=== PATIENT | male | born 1955 | race African-American/Black ===

== ENCOUNTER 2017-11-12 21:14 | Emergency (ER) | payer MEDICAID ==
[~2017-11-12] VITALS: Ht 167.6 cm; Wt 82.0 kg
[~2017-11-12 21:14] MED LIST: ASPI-1159 PO; ATOR40TA70 PO; BENZ100C86 PO; DIPH50CA38 PO; FAMO20TA8 PO; GABA-290 PO; LOSA50TA20 PO; METF10002 PO; NAPR-681 PO; SERT-112 PO
[2017-11-13] MEDS ORDERED: SODIUM CHLORIDE 0.9% 1,000 ML IV ONE (02:37)
[2017-11-13] MEDS ORDERED: MORPHINE SULFATE 4 MG/ML CPJ (NOT FOR IM USE) IV ONE (02:45)
[2017-11-13] MEDS ORDERED: ONDANSETRON HCL 4MG/2ML VIAL IV ONE (02:45)
[2017-11-13 03:17] LABS: BASOPHILS % 0.9 % (0.0-2.0); EOSINOPHILS % 1.3 % (0.0-5.0); HEMATOCRIT. 37.1 % (42.0-52.0); HEMOGLOBIN. 11.9 g/dL (14.0-18.0); LYMPHOCYTES % 26.1 % (20.0-50.0); MEAN CORPUSCULAR HEMOGLOBIN 25.7 pg (28.0-32.0); MEAN PLATELET VOLUME 8.4 fl (7.4-10.4); MONOCYTES % 10.7 % (2.0-8.0); PLATELET 275 x1000/uL (130-400); RED BLOOD CELL COUNT 4.64 mill/uL (4.7-6.1); RED CELL DISTRIBUTION WIDTH 13.9 % (11.6-14.6)
[2017-11-13 03:19] LABS: CLARITY URINE CLEAR (CLEAR); COLOR URINE YELLOW (YELLOW); KETONES URINE NEGATIVE (NEGATIVE); LEUKOCYTE ESTERASE URINE NEGATIVE (NEGATIVE); NITRITE URINE NEGATIVE (NEGATIVE); OCCULT BLOOD URINE NEGATIVE (NEGATIVE); PROTEIN URINE NEGATIVE (NEGATIVE); UROBILINOGEN URINE 0.2 E.U./dL (0.2-1.0)
[2017-11-13 03:21] LABS: INR 1.1; PROTHROMBIN TIME 11.1 sec (9.4-11.6)
[2017-11-13 03:41] LABS: CARBON DIOXIDE 31 mEq/L (21-32); CHLORIDE 102 mEq/L (98-107)
[2017-11-13] MEDS ORDERED: GABAPENTIN 300MG CAPSULE PO NR (08:00)
[2017-11-13] MEDS ORDERED: LOSARTAN POTASSIUM 50 MG TABLET PO NR (08:00)
[2017-11-13] MEDS ORDERED: METFORMIN HCL 500MG TABLET PO NR (08:00)
[2017-11-13 11:00] VITALS: BP 142/79
[2017-11-13] MEDS ORDERED: GABAPENTIN 300MG CAPSULE PO SCH ×2 (14:00)
[2017-11-13] MEDS ORDERED: METFORMIN HCL 500MG TABLET PO SCH (17:00)
[2017-11-14] MEDS ORDERED: LOSARTAN POTASSIUM 50 MG TABLET PO SCH (09:00)
== END 2017-11-13 12:03 | disposition home or self-care (01) ==
LOC: ER 21:16
DX: M79.671 Pain in right foot (principal); E86.0 Dehydration; E11.65 Type 2 diabetes mellitus with hyperglycemia; G62.9 Polyneuropathy, unspecified; F17.210 Nicotine dependence, cigarettes, uncomplicated; J45.909 Unspecified asthma, uncomplicated; I10 Essential (primary) hypertension; G40.909 Epilepsy, unspecified, not intractable, without status epilepticus; F10.10 Alcohol abuse, uncomplicated; Y90.9 Presence of alcohol in blood, level not specified; Z79.82 Long term (current) use of aspirin; Z71.6 Tobacco abuse counseling; Z91.19 Patient's noncompliance with other medical treatment and regimen
CPT/HCPCS: 36415; 73610; 73630; 80053; 81003; 82962; 83605; 85025; 85610; 93005; 96361; 96374; 96375; 99285; J2270; J2405; J7030; Z7610

== ENCOUNTER 2017-11-15 11:19 | Emergency (ER) | payer MEDICAID ==
[~2017-11-15] VITALS: Ht 172.7 cm; Wt 100.0 kg
[2017-11-15] MEDS ORDERED: KETOROLAC 60MG/2ML VIAL IM ONE (16:45)
[2017-11-15] MEDS ORDERED: ACETAMINOPHEN 325MG TABLET PO ONE (19:00)
[2017-11-15 20:00] VITALS: BP 126/82
== END 2017-11-15 20:30 | disposition home or self-care (01) ==
LOC: ER 11:27
DX: M79.671 Pain in right foot (principal); M79.672 Pain in left foot; I10 Essential (primary) hypertension; E11.9 Type 2 diabetes mellitus without complications; J45.909 Unspecified asthma, uncomplicated; Z79.82 Long term (current) use of aspirin
CPT/HCPCS: 73630; 96372; 99284; J1885

== ENCOUNTER 2020-04-18 19:08 | Emergency (ER) | payer MEDICAID ==
[~2020-04-18] VITALS: Ht 167.6 cm; Wt 85.0 kg
[~2020-04-18 19:08] MED LIST changes: -ASPI-1159 PO; +ASPI-1497 PO; -LOSA50TA20 PO; +LOSA50TA41 PO; +METF-416 PO; -METF10002 PO
[2020-04-18] MEDS ORDERED: IBUPROFEN 800MG TABLET PO ONE (20:30)
[2020-04-18] MEDS ORDERED: ACETAMINOPHEN 500MG TABLET PO ONE (20:30)
[2020-04-18 22:19] VITALS: BP 151/83
== END 2020-04-18 22:21 | disposition home or self-care (01) ==
LOC: ER 19:08
DX: S39.012A Strain of muscle, fascia and tendon of lower back, initial encounter (principal); S46.819A Strain of other muscles, fascia and tendons at shoulder and upper arm level, unspecified arm, initial encounter; I10 Essential (primary) hypertension; F17.210 Nicotine dependence, cigarettes, uncomplicated; X58.XXXA Exposure to other specified factors, initial encounter; Y93.89 Activity, other specified; Y92.018 Other place in single-family (private) house as the place of occurrence of the external cause
CPT/HCPCS: 72040; 72100; 99284

== ENCOUNTER 2020-06-24 08:15 | Inpatient (IN) | payer MEDICAID ==
[~2020-06-24] VITALS: Ht 167.6 cm; Wt 81.6 kg
[2020-06-24] MEDS ORDERED: SODIUM CHLORIDE 0.9% 1,000 ML IV ONE (08:45)
[2020-06-24 09:22] LABS: BASOPHILS % 0.7 % (0.0-2.0); EOSINOPHILS % 0.5 % (0.0-5.0); HEMATOCRIT. 43.2 % (42.0-52.0); HEMOGLOBIN. 14.1 g/dL (14.0-18.0); MEAN CORPUSCULAR HEMOGLOBIN 26.5 pg (28.0-32.0); MEAN PLATELET VOLUME 9.2 fl (7.4-10.4); MONOCYTES % 7.1 % (2.0-8.0); NEUTROPHILS % 74.7 % (40.0-76.0); PLATELET 192 x1000/uL (130-400); RED BLOOD CELL COUNT 5.33 mill/uL (4.7-6.1)
[2020-06-24 09:25] LABS: CHLORIDE 110 mEq/L (98-107)
[2020-06-24 09:27] LABS: PROTHROMBIN TIME 10.9 sec (9.6-11.0)
[2020-06-24] MEDS ORDERED: BENZONATATE 100MG CAPSULE PO PRN (17:00)
[2020-06-24] MEDS ORDERED: CLONIDINE 0.1MG TABLET PO PRN (17:00)
[2020-06-24] MEDS ORDERED: DOCUSATE SODIUM 100MG CAPSULE PO PRN (17:00)
[2020-06-24] MEDS ORDERED: ACETAMINOPHEN 325MG TABLET PO PRN ×2 (17:00)
[2020-06-24] MEDS ORDERED: MORPHINE SULFATE 2 MG/ML CPJ (NOT FOR IM USE) IV PRN (17:00)
[2020-06-24] MEDS ORDERED: LORAZEPAM 0.5MG TABLET PO PRN (17:00)
[2020-06-24] MEDS ORDERED: ATORVASTATIN CALCIUM 40MG TABLET PO SCH (17:00)
[2020-06-24] MEDS ORDERED: IPRATROPIUM/ALBUTEROL 0.5-3(2.5)MG/3ML NEB HHN PRN (17:00)
[2020-06-24] MEDS ORDERED: HYDROCODONE/ACETAMINOPHEN 5/325MG TABLET PO PRN (17:00)
[2020-06-24] MEDS ORDERED: ONDANSETRON HCL 4MG/2ML INJ IV PRN (17:00)
[2020-06-24 20:00] VITALS: BP 149/78
[2020-06-24 20:11] VITALS: BP 149/78
[2020-06-24] MEDS ORDERED: SERTRALINE HCL 100MG TABLET PO SCH (21:00)
[2020-06-24] MEDS: OMEPRAZOLE 20MG CAPSULE EXTENDED RELEASE PO SCH (22:00)
[2020-06-24] MEDS ORDERED: DEXTROSE 50% WATER 50ML SYRINGE IV PRN (22:00)
[2020-06-24] MEDS: INSULIN LISPRO 100 UNITS/ML SUBCUT SCH (22:00)
[2020-06-24] MEDS: GABAPENTIN 300MG CAPSULE PO SCH (22:01)
[2020-06-24] MEDS: BLOOD SUGAR DIAGNOSTIC STRIP TEST SCH (22:05)
[2020-06-25] VITALS: BP 146/70
[2020-06-25 04:00] VITALS: BP 113/72
[2020-06-25] MEDS: GABAPENTIN 300MG CAPSULE PO SCH ×2 (06:14→14:56)
[2020-06-25 06:18] LABS: BASOPHILS % 0.7 % (0.0-2.0); EOSINOPHILS % 1.2 % (0.0-5.0); HEMATOCRIT. 40.4 % (42.0-52.0); HEMOGLOBIN. 13.2 g/dL (14.0-18.0); LYMPHOCYTES % 25.4 % (20.0-50.0); MEAN CORPUSCULAR HEMOGLOBIN 26.6 pg (28.0-32.0); MEAN PLATELET VOLUME 8.9 fl (7.4-10.4); MONOCYTES % 7.8 % (2.0-8.0); NEUTROPHILS % 64.9 % (40.0-76.0); PLATELET 198 x1000/uL (130-400); RED BLOOD CELL COUNT 4.98 mill/uL (4.7-6.1); RED CELL DISTRIBUTION WIDTH 13.7 % (11.6-14.6)
[2020-06-25] MEDS: OMEPRAZOLE 20MG CAPSULE EXTENDED RELEASE PO SCH (06:27)
[2020-06-25] MEDS: BLOOD SUGAR DIAGNOSTIC STRIP TEST SCH ×2 (06:27→12:47)
[2020-06-25 06:33] LABS: CHLORIDE 108 mEq/L (98-107)
[2020-06-25] MEDS ORDERED: BLOOD SUGAR DIAGNOSTIC STRIP TEST SCH (07:20)
[2020-06-25] MEDS: INSULIN LISPRO 100 UNITS/ML SUBCUT SCH ×2 (07:50→12:48)
[2020-06-25] MEDS ORDERED: INSULIN LISPRO 100 UNITS/ML SUBCUT SCH (07:50)
[2020-06-25 08:00] VITALS: BP 163/88
[2020-06-25] MEDS ORDERED: LOSARTAN POTASSIUM 50 MG TABLET PO SCH (09:00)
[2020-06-25 12:00] VITALS: BP 138/76
[2020-06-25 12:11] VITALS: BP 138/76
== END 2020-06-25 16:10 | disposition home or self-care (01) | DRG 253 ==
LOC: ER 08:15 → 6EST 10:55 → EDBEDREQSVC 10:59 → EDBEDREQ 10:59 → ENRESERV 18:39
PROVIDERS: ADMIT Internal Medicine; ATTEND Internal Medicine
DX: K92.2 Gastrointestinal hemorrhage, unspecified (principal); E11.9 Type 2 diabetes mellitus without complications; I10 Essential (primary) hypertension; F17.200 Nicotine dependence, unspecified, uncomplicated; J44.9 Chronic obstructive pulmonary disease, unspecified; G40.909 Epilepsy, unspecified, not intractable, without status epilepticus; T54.91XA Toxic effect of unspecified corrosive substance, accidental (unintentional), initial encounter; Y92.89 Other specified places as the place of occurrence of the external cause; Z79.84 Long term (current) use of oral hypoglycemic drugs; Z86.73 Personal history of transient ischemic attack (TIA), and cerebral infarction without residual deficits; Z79.82 Long term (current) use of aspirin; Z79.899 Other long term (current) drug therapy; E87.8 Other disorders of electrolyte and fluid balance, not elsewhere classified
CPT/HCPCS: 36415; 71045; 80048; 80053; 82270; 82962; 83036; 83605; 85025; 86850; 86900; 93005; 99285; J7030

== ENCOUNTER 2020-07-04 19:31 | Inpatient (IN) | payer MEDICAID ==
[~2020-07-04] VITALS: Ht 160 cm; Wt 87.5 kg
[2020-07-04] MEDS ORDERED: ASPIRIN 81MG TABLET PO ONE (20:00)
[2020-07-04] MEDS ORDERED: NITROGLYCERIN 0.4MG TABLET SL SL PRN (20:00)
[2020-07-04 21:08] LABS: BASOPHILS % 0.6 % (0.0-2.0); EOSINOPHILS % 0.9 % (0.0-5.0); HEMOGLOBIN. 12.2 g/dL (14.0-18.0); LYMPHOCYTES % 25.6 % (20.0-50.0); MEAN CORPUSCULAR HEMOGLOBIN 26.2 pg (28.0-32.0); MEAN CORPUSCULAR VOLUME 81.4 fL (80.0-94.0); MONOCYTES % 7.5 % (2.0-8.0); NEUTROPHILS % 65.4 % (40.0-76.0); PLATELET 186 x1000/uL (130-400); RED BLOOD CELL COUNT 4.67 mill/uL (4.7-6.1); RED CELL DISTRIBUTION WIDTH 14.1 % (11.6-14.6)
[2020-07-04 21:15] LABS: CHLORIDE 112 mEq/L (98-107)
[2020-07-04 21:19] LABS: D-DIMER 1.12 mg/L FEU (<0.50); PARTIAL THROMBOPLASTIN TIME 27.8 sec (23.4-31.0); PROTHROMBIN TIME 10.5 sec (9.6-11.0)
[2020-07-04] MEDS ORDERED: VANCOMYCIN 1 G PREMIX 200 ML IV ONE (23:00)
[2020-07-04] MEDS ORDERED: PIPERACILLIN/TAZ 3.375G PREMIX 50 ML IV ONE (23:00)
[2020-07-04] MEDS ORDERED: IOHEXOL-350 100 ML BOTTLE ONE (23:26)
[2020-07-05] VITALS (9 sets, daily range): BP systolic 123–153; BP diastolic 61–79
[2020-07-05] MEDS ORDERED: ACETAMINOPHEN 325MG TABLET PO PRN (03:15)
[2020-07-05] MEDS ORDERED: CEFTRIAXONE 1 G PREMIX 50 ML IV SCH (03:15)
[2020-07-05] MEDS ORDERED: DEXTROSE 50% WATER 50ML SYRINGE IV PRN (03:15)
[2020-07-05] MEDS ORDERED: MORPHINE SULFATE 2 MG/ML CPJ (NOT FOR IM USE) IV PRN (03:15)
[2020-07-05] MEDS ORDERED: IPRATROPIUM/ALBUTEROL 0.5-3(2.5)MG/3ML NEB HHN PRN (03:30)
[2020-07-05] MEDS: AZITHROMYCIN 500 MG in DEXT 5% WATER 250 ML IV SCH (05:42)
[2020-07-05] MEDS: BLOOD SUGAR DIAGNOSTIC STRIP TEST SCH ×4 (05:45→20:42)
[2020-07-05] MEDS: INSULIN LISPRO 100 UNITS/ML SUBCUT SCH ×4 (08:10→20:42)
[2020-07-05] MEDS ORDERED: TRAMADOL 50MG TABLET PO PRN (08:45)
[2020-07-05] MEDS: CEFTRIAXONE 1,000 MG in DEXTROSE 5% WATER 50 ML IV SCH (08:50)
[2020-07-05] MEDS: METFORMIN HCL 500MG TABLET PO SCH (08:50)
[2020-07-05] MEDS ORDERED: DEXAMETHASONE 4MG TABLET PO SCH (09:00)
[2020-07-05] MEDS: ENOXAPARIN 40MG/0.4ML SYR SUBCUT SCH (09:08)
[2020-07-05 20:43] LABS: CLARITY URINE CLEAR (CLEAR); COLOR URINE YELLOW (YELLOW); KETONES URINE NEGATIVE (NEGATIVE); LEUKOCYTE ESTERASE URINE NEGATIVE (NEGATIVE); NITRITE URINE NEGATIVE (NEGATIVE); OCCULT BLOOD URINE NEGATIVE (NEGATIVE); PH URINE 5.5 (4.5-8.0); PROTEIN URINE NEGATIVE (NEGATIVE); SPECIFIC GRAVITY URINE 1.015 (1.005-1.030); UROBILINOGEN URINE 0.2 E.U./dL (0.2-1.0)
[2020-07-05] MEDS ORDERED: ATORVASTATIN CALCIUM 20MG TABLET PO SCH (21:00)
[2020-07-05 21:05] LABS: *AMPHETAMINES SCREEN URINE NEGATIVE (NEGATIVE)
[2020-07-05 21:06] LABS: *BARBITURATES SCREEN URINE NEGATIVE (NEGATIVE); *BENZODIAZEPINES SCREEN URINE NEGATIVE (NEGATIVE); *COCAINE SCREEN URINE NEGATIVE (NEGATIVE); METHADONE URINE SCREEN NEGATIVE (NEGATIVE); OPIATES URINE SCREEN NEGATIVE (NEGATIVE); PHENCYCLIDINE URINE SCREEN NEGATIVE (NEGATIVE)
[2020-07-05 21:07] LABS: CANNABINOID URINE SCREEN NEGATIVE (NEGATIVE)
[2020-07-06] VITALS: BP 136/60
[2020-07-06] MEDS ORDERED: CALCIUM CARBONATE 500MG TABLET CHEW PO PRN (00:45)
[2020-07-06 04:00] VITALS: BP 132/39
[2020-07-06] MEDS: BLOOD SUGAR DIAGNOSTIC STRIP TEST SCH ×2 (06:20→11:46)
[2020-07-06] MEDS: INSULIN LISPRO 100 UNITS/ML SUBCUT SCH ×2 (06:20→11:46)
[2020-07-06] MEDS: METFORMIN HCL 500MG TABLET PO SCH (08:05)
[2020-07-06 08:07] VITALS: BP 152/74
[2020-07-06 09:00] LABS: BASOPHILS % 0.5 % (0.0-2.0); EOSINOPHILS % 0.1 % (0.0-5.0); HEMATOCRIT. 38.9 % (42.0-52.0); HEMOGLOBIN. 12.6 g/dL (14.0-18.0); LYMPHOCYTES % 13.6 % (20.0-50.0); MEAN CORPUSCULAR HEMOGLOBIN 26.4 pg (28.0-32.0); MEAN CORPUSCULAR VOLUME 81.6 fL (80.0-94.0); MONOCYTES % 3.7 % (2.0-8.0); NEUTROPHILS % 82.1 % (40.0-76.0); PLATELET 179 x1000/uL (130-400); RED BLOOD CELL COUNT 4.77 mill/uL (4.7-6.1)
[2020-07-06] MEDS ORDERED: ASPIRIN 81MG TABLET PO SCH (09:00)
[2020-07-06] MEDS: ENOXAPARIN 40MG/0.4ML SYR SUBCUT SCH (09:02)
[2020-07-06 09:18] LABS: CHLORIDE 109 mEq/L (98-107)
[2020-07-06] MEDS: AZITHROMYCIN 500 MG in DEXT 5% WATER 250 ML IV SCH (10:16)
[2020-07-06] MEDS: CEFTRIAXONE 1,000 MG in DEXTROSE 5% WATER 50 ML IV SCH (10:16)
[2020-07-06] MEDS ORDERED: IPRATROPIUM/ALBUTEROL 0.5-3(2.5)MG/3ML NEB HHN PRN (10:30)
[2020-07-06 12:00] VITALS: BP 146/78
[2020-07-06] MEDS ORDERED: FLUT1DIS3 INH (14:27)
[2020-07-06] MEDS ORDERED: ALBU18HF2 IH (14:27)
[2020-07-06 14:45] VITALS: BP 146/78
== END 2020-07-06 15:10 | disposition home or self-care (01) | DRG 190 ==
LOC: ER 19:31 → 7WST 07-05 00:47 → EDBEDREQDT 07-05 00:53 → EDBEDREQ 07-05 00:53 → EDBEDREQTM 07-05 00:53 → ENRESERV 07-05 01:28 → 5WST 07-05 20:58
PROVIDERS: ADMIT Internal Medicine; ATTEND Internal Medicine
DX: I21.A1 Myocardial infarction type 2 (principal); J96.00 Acute respiratory failure, unspecified whether with hypoxia or hypercapnia; E11.9 Type 2 diabetes mellitus without complications; I10 Essential (primary) hypertension; M10.9 Gout, unspecified; K76.0 Fatty (change of) liver, not elsewhere classified; E87.2 Acidosis; E87.8 Other disorders of electrolyte and fluid balance, not elsewhere classified; D64.9 Anemia, unspecified; E78.5 Hyperlipidemia, unspecified; R00.1 Bradycardia, unspecified; F17.210 Nicotine dependence, cigarettes, uncomplicated; N17.0 Acute kidney failure with tubular necrosis; J18.9 Pneumonia, unspecified organism; I44.1 Atrioventricular block, second degree; G52.2 Disorders of vagus nerve; I25.10 Atherosclerotic heart disease of native coronary artery without angina pectoris; E66.01 Morbid (severe) obesity due to excess calories; J44.1 Chronic obstructive pulmonary disease with (acute) exacerbation; J44.0 Chronic obstructive pulmonary disease with (acute) lower respiratory infection; Z79.899 Other long term (current) drug therapy; Z79.82 Long term (current) use of aspirin; Z79.84 Long term (current) use of oral hypoglycemic drugs; Z68.34 Body mass index [BMI] 34.0-34.9, adult; Z86.19 Personal history of other infectious and parasitic diseases; Z20.828 Contact with and (suspected) exposure to other viral communicable diseases
CPT/HCPCS: 36415; 71045; 71275; 80048; 80053; 80305; 81003; 82962; 83036; 83605; 83880; 84484; 85025; 85379; 87426; 93005; 93306; 99291; J0456; J0696; J1650; J1815; J2543; J3370; J7060; J8540; Q9967

== ENCOUNTER 2020-07-13 09:37 | Emergency (ER) | payer MEDICAID ==
[~2020-07-13] VITALS: Ht 157.5 cm; Wt 82.0 kg
[~2020-07-13 09:37] MED LIST changes: +ALBU18HF2 IH; +FLUT1DIS3 INH
[2020-07-13 10:35] LABS: BASOPHILS % 0.7 % (0.0-2.0); EOSINOPHILS % 1.4 % (0.0-5.0); HEMATOCRIT. 44.2 % (42.0-52.0); HEMOGLOBIN. 14.2 g/dL (14.0-18.0); LYMPHOCYTES % 25.2 % (20.0-50.0); MEAN CORPUSCULAR HEMOGLOBIN 26.4 pg (28.0-32.0); MEAN CORPUSCULAR VOLUME 82.1 fL (80.0-94.0); MONOCYTES % 9.2 % (2.0-8.0); NEUTROPHILS % 63.5 % (40.0-76.0); PLATELET 176 x1000/uL (130-400); RED BLOOD CELL COUNT 5.38 mill/uL (4.7-6.1); RED CELL DISTRIBUTION WIDTH 14.6 % (11.6-14.6)
[2020-07-13 10:44] LABS: CHLORIDE 108 mEq/L (98-107)
[2020-07-13] MEDS ORDERED: ASPIRIN 325MG EC TABLET PO NR (11:30)
[2020-07-13] MEDS ORDERED: ONDANSETRON HCL 4MG/2ML INJ IV PRN (12:30)
[2020-07-13] MEDS ORDERED: DIPHENHYDRAMINE 50MG/ML VIAL IV PRN (12:30)
[2020-07-13] MEDS ORDERED: CLONIDINE 0.1MG TABLET PO PRN (12:30)
[2020-07-13] MEDS ORDERED: MORPHINE SULFATE 2 MG/ML CPJ (NOT FOR IM USE) IV PRN (12:30)
[2020-07-13] MEDS ORDERED: ACETAMINOPHEN 325MG TABLET PO PRN (12:30)
[2020-07-13] MEDS ORDERED: IPRATROPIUM/ALBUTEROL 0.5-3(2.5)MG/3ML NEB HHN PRN (12:30)
[2020-07-13 12:47] LABS: PHOSPHORUS 3.8 mg/dL (2.5-4.9)
[2020-07-13] MEDS ORDERED: ENOXAPARIN 40MG/0.4ML SYR SUBCUT SCH (13:00)
[2020-07-13 13:15] VITALS: BP 153/81
[2020-07-14] MEDS ORDERED: ASPIRIN 81MG EC TABLET PO SCH (09:00)
== END 2020-07-13 13:41 | disposition left against medical advice (07) ==
LOC: ER 09:37 → EDBEDREQ 12:25 → ER 13:41 → CANBEDREQ 18:58
DX: R07.89 Other chest pain (principal); I10 Essential (primary) hypertension; E11.9 Type 2 diabetes mellitus without complications; E78.00 Pure hypercholesterolemia, unspecified; F17.210 Nicotine dependence, cigarettes, uncomplicated
CPT/HCPCS: 36415; 71045; 80053; 83735; 83880; 84100; 84484; 85025; 93005; 93970; 99285

== ENCOUNTER 2020-08-01 17:30 | Emergency (ER) | payer MEDICAID ==
[~2020-08-01] VITALS: Ht 157.5 cm; Wt 82.0 kg
[2020-08-01] MEDS ORDERED: ONDANSETRON HCL 4MG/2ML INJ IV STA (17:44)
[2020-08-01] MEDS ORDERED: SODIUM CHLORIDE 0.9% 500 ML IV ONE (17:45)
[2020-08-01 17:55] LABS: CLARITY URINE CLEAR (CLEAR); COLOR URINE YELLOW (YELLOW); KETONES URINE TRACE (NEGATIVE); LEUKOCYTE ESTERASE URINE NEGATIVE (NEGATIVE); NITRITE URINE NEGATIVE (NEGATIVE); OCCULT BLOOD URINE NEGATIVE (NEGATIVE); PROTEIN URINE NEGATIVE (NEGATIVE)
[2020-08-01] MEDS ORDERED: MORPHINE SULFATE 4 MG/ML CPJ (NOT FOR IM USE) IV ONE (18:00)
[2020-08-01 18:03] LABS: BASOPHILS % 0.6 % (0.0-2.0); EOSINOPHILS % 1.4 % (0.0-5.0); HEMATOCRIT. 47.1 % (42.0-52.0); HEMOGLOBIN. 15.3 g/dL (14.0-18.0); LYMPHOCYTES % 19.7 % (20.0-50.0); MEAN CORPUSCULAR HEMOGLOBIN 26.3 pg (28.0-32.0); MEAN CORPUSCULAR VOLUME 80.7 fL (80.0-94.0); MEAN PLATELET VOLUME 9.3 fl (7.4-10.4); MONOCYTES % 8.8 % (2.0-8.0); NEUTROPHILS % 69.5 % (40.0-76.0); PLATELET 232 x1000/uL (130-400); RED BLOOD CELL COUNT 5.83 mill/uL (4.7-6.1); RED CELL DISTRIBUTION WIDTH 14.1 % (11.6-14.6)
[2020-08-01 18:10] LABS: CHLORIDE 104 mEq/L (98-107)
[2020-08-01 18:16] LABS: PROTHROMBIN TIME 10.4 sec (9.6-11.0)
[2020-08-01] MEDS ORDERED: FUROSEMIDE 20MG/2ML VIAL IVP ONE (19:30)
[2020-08-01] MEDS ORDERED: FUROSEMIDE 20MG TABLET PO ONE (19:30)
[2020-08-01 19:54] VITALS: BP 115/68
== END 2020-08-01 19:55 | disposition home or self-care (01) ==
LOC: ER 17:30
DX: R10.9 Unspecified abdominal pain (principal); K57.90 Diverticulosis of intestine, part unspecified, without perforation or abscess without bleeding; N28.9 Disorder of kidney and ureter, unspecified; E11.9 Type 2 diabetes mellitus without complications; I10 Essential (primary) hypertension; R56.9 Unspecified convulsions; J40 Bronchitis, not specified as acute or chronic; Z79.82 Long term (current) use of aspirin
CPT/HCPCS: 36415; 74176; 80053; 81003; 83690; 83880; 84484; 85025; 85610; 93005; 96361; 96374; 96375; 99285; J2270; J2405; J7040

== ENCOUNTER 2020-08-20 09:20 | Emergency (ER) | payer MEDICAID ==
[~2020-08-20] VITALS: Ht 172.7 cm; Wt 80.0 kg
[2020-08-20] MEDS ORDERED: MORPHINE SULFATE 4 MG/ML CPJ (NOT FOR IM USE) IV STA (10:24)
[2020-08-20] MEDS ORDERED: ONDANSETRON HCL 4MG/2ML INJ IV STA (10:24)
[2020-08-20] MEDS ORDERED: NITROGLYCERIN OINT 1GM/INCH UDPKT TD ONE (10:30)
[2020-08-20] MEDS ORDERED: SODIUM CHLORIDE 0.9% 1,000 ML IV ONE (10:30)
[2020-08-20] MEDS ORDERED: ASPIRIN 81MG TABLET PO ONE (10:30)
[2020-08-20 11:30] LABS: BASOPHILS % 0.4 % (0.0-2.0); EOSINOPHILS % 1.5 % (0.0-5.0); HEMATOCRIT. 43.6 % (42.0-52.0); HEMOGLOBIN. 13.7 g/dL (14.0-18.0); LYMPHOCYTES % 25.1 % (20.0-50.0); MEAN CORPUSCULAR HEMOGLOBIN 26.2 pg (28.0-32.0); MEAN CORPUSCULAR VOLUME 83.4 fL (80.0-94.0); MEAN PLATELET VOLUME 9.4 fl (7.4-10.4); MONOCYTES % 8.4 % (2.0-8.0); NEUTROPHILS % 64.6 % (40.0-76.0); PLATELET 188 x1000/uL (130-400); RED BLOOD CELL COUNT 5.22 mill/uL (4.7-6.1); RED CELL DISTRIBUTION WIDTH 14.2 % (11.6-14.6)
[2020-08-20] MEDS ORDERED: ONDANSETRON HCL 4MG/2ML INJ IV PRN (13:00)
[2020-08-20] MEDS ORDERED: METOPROLOL TARTRATE 25MG TABLET PO SCH (13:00)
[2020-08-20] MEDS ORDERED: ACETAMINOPHEN 325MG TABLET PO PRN (13:00)
[2020-08-20 13:18] LABS: CHLORIDE 111 mEq/L (98-107)
[2020-08-20 13:20] VITALS: BP 117/73
[2020-08-20 13:26] LABS: ETHANOL BLOOD < 10 mg/dL
[2020-08-21] MEDS ORDERED: ASPIRIN 81MG TABLET PO SCH (09:00)
== END 2020-08-20 14:19 | disposition home or self-care (01) ==
LOC: ER 09:20 → EDBEDREQ 12:07 → EDBEDREQTM 13:19 → ENRESERV 13:41 → CANRESERV 13:41 → CANBEDREQ 14:09 → ER 14:19
DX: I10 Essential (primary) hypertension (principal); R07.89 Other chest pain; E11.9 Type 2 diabetes mellitus without complications; G40.909 Epilepsy, unspecified, not intractable, without status epilepticus; F17.210 Nicotine dependence, cigarettes, uncomplicated; Z79.84 Long term (current) use of oral hypoglycemic drugs
CPT/HCPCS: 36415; 71045; 80053; 80320; 83690; 83880; 84484; 85025; 85379; 93005; 93970; 96361; 96374; 96375; 99285; J2270; J2405; J7030; Z7610; G0480

== ENCOUNTER 2020-09-22 10:55 | Emergency (ER) | payer MEDICAID ==
[~2020-09-22] VITALS: Ht 157.5 cm; Wt 82.0 kg
[2020-09-22 12:12] VITALS: BP 151/86
[2020-09-22] MEDS ORDERED: ASPIRIN 325MG EC TABLET PO ONE (12:30)
[2020-09-22 12:34] LABS: BASOPHILS % 0.7 % (0.0-2.0); EOSINOPHILS % 1.6 % (0.0-5.0); HEMATOCRIT. 40.7 % (42.0-52.0); HEMOGLOBIN. 13.1 g/dL (14.0-18.0); MEAN CORPUSCULAR HEMOGLOBIN 26.4 pg (28.0-32.0); MEAN CORPUSCULAR VOLUME 82.2 fL (80.0-94.0); MEAN PLATELET VOLUME 9.5 fl (7.4-10.4); MONOCYTES % 7.5 % (2.0-8.0); NEUTROPHILS % 63.2 % (40.0-76.0); PLATELET 174 x1000/uL (130-400); RED BLOOD CELL COUNT 4.96 mill/uL (4.7-6.1); RED CELL DISTRIBUTION WIDTH 14.3 % (11.6-14.6)
[2020-09-22 12:36] LABS: CHLORIDE 111 mEq/L (98-107)
== END 2020-09-22 13:45 | disposition left against medical advice (07) ==
LOC: ER 10:55 → EDBEDREQTM 13:10 → EDBEDREQ 13:10 → ER 13:45 → CANBEDREQ 16:12
DX: R07.89 Other chest pain (principal); I21.3 ST elevation (STEMI) myocardial infarction of unspecified site; E11.9 Type 2 diabetes mellitus without complications; I10 Essential (primary) hypertension; F17.200 Nicotine dependence, unspecified, uncomplicated; Z79.899 Other long term (current) drug therapy
CPT/HCPCS: 36415; 71045; 80053; 83880; 84484; 85025; 93005; 99285

== ENCOUNTER 2021-04-29 08:40 | Emergency (ER) | payer MEDICAID ==
[~2021-04-29] VITALS: Ht 167.6 cm; Wt 82.0 kg
[2021-04-29] MEDS ORDERED: ALBUTEROL (0.083%) 2.5MG/3ML NEB HHN ONE (09:30)
[2021-04-29 10:32] VITALS: BP 137/75
[2021-05-04] MEDS ORDERED: LISI20TA31 PO (11:37)
[2021-05-04] MEDS ORDERED: AMLO5TAB88 PO (11:37)
[2021-05-06] MEDS ORDERED: ASPI-1497 MT (12:55)
[2021-05-06] MEDS ORDERED: LISI20TA31 PO (12:55)
[2021-05-06] MEDS ORDERED: FURO40TA5 MT (12:55)
[2021-05-06] MEDS ORDERED: TRAM50TA3 MT (12:57)
[2021-05-06] MEDS ORDERED: METO-539 MT (12:57)
[2021-05-06] MEDS ORDERED: GLIP5TAB12 MT (12:57)
== END 2021-04-29 10:29 | disposition home or self-care (01) ==
LOC: ER 08:40
DX: Z48.01 Encounter for change or removal of surgical wound dressing (principal); I10 Essential (primary) hypertension; J40 Bronchitis, not specified as acute or chronic; E11.9 Type 2 diabetes mellitus without complications; Z94.1 Heart transplant status; Z95.1 Presence of aortocoronary bypass graft; Z79.82 Long term (current) use of aspirin
CPT/HCPCS: 93005; 94640; 99283; Z7610

== ENCOUNTER 2021-05-02 07:36 | Emergency (ER) | payer MEDICAID ==
[~2021-05-02] VITALS: Ht 165.1 cm; Wt 73.0 kg
[2021-05-02 09:44] LABS: BASOPHILS % 0.5 % (0.0-2.0); EOSINOPHILS % 1.8 % (0.0-5.0); HEMATOCRIT. 32.1 % (42.0-52.0); HEMOGLOBIN. 10.6 g/dL (14.0-18.0); LYMPHOCYTES % 17.4 % (20.0-50.0); MEAN CORPUSCULAR HEMOGLOBIN 27.4 pg (28.0-32.0); MEAN CORPUSCULAR VOLUME 83.2 fL (80.0-94.0); MEAN PLATELET VOLUME 8.3 fl (7.4-10.4); MONOCYTES % 7.4 % (2.0-8.0); NEUTROPHILS % 72.9 % (40.0-76.0); PLATELET 367 x1000/uL (130-400); RED BLOOD CELL COUNT 3.86 mill/uL (4.7-6.1); RED CELL DISTRIBUTION WIDTH 15.7 % (11.6-14.6)
[2021-05-02 09:52] LABS: CHLORIDE 114 mEq/L (98-107)
[2021-05-02 09:56] LABS: ETHANOL BLOOD < 10 mg/dL
[2021-05-02 10:00] VITALS: BP 150/80
[2021-05-02 10:34] LABS: *AMPHETAMINES SCREEN URINE NEGATIVE (NEGATIVE)
[2021-05-02 10:35] LABS: *BARBITURATES SCREEN URINE NEGATIVE (NEGATIVE); *BENZODIAZEPINES SCREEN URINE NEGATIVE (NEGATIVE); *COCAINE SCREEN URINE NEGATIVE (NEGATIVE); CANNABINOID URINE SCREEN NEGATIVE (NEGATIVE); METHADONE URINE SCREEN NEGATIVE (NEGATIVE); OPIATES URINE SCREEN NEGATIVE (NEGATIVE); PHENCYCLIDINE URINE SCREEN NEGATIVE (NEGATIVE)
[2021-05-04] MEDS ORDERED: AMLO5TAB88 PO (11:37)
[2021-05-04] MEDS ORDERED: LISI20TA31 PO (11:37)
[2021-05-06] MEDS ORDERED: LISI20TA31 PO (12:55)
[2021-05-06] MEDS ORDERED: ASPI-1497 MT (12:55)
[2021-05-06] MEDS ORDERED: FURO40TA5 MT (12:55)
[2021-05-06] MEDS ORDERED: GLIP5TAB12 MT (12:57)
[2021-05-06] MEDS ORDERED: METO-539 MT (12:57)
[2021-05-06] MEDS ORDERED: TRAM50TA3 MT (12:57)
== END 2021-05-02 11:51 | disposition left against medical advice (07) ==
LOC: ER 07:36
DX: R07.89 Other chest pain (principal); R06.02 Shortness of breath; N28.9 Disorder of kidney and ureter, unspecified; E11.9 Type 2 diabetes mellitus without complications; I10 Essential (primary) hypertension; F17.290 Nicotine dependence, other tobacco product, uncomplicated; Z79.899 Other long term (current) drug therapy
CPT/HCPCS: 36415; 71250; 80053; 80305; 80320; 83880; 84484; 85025; 93005; 99285; G0480

== ENCOUNTER 2021-10-31 01:49 | Inpatient (IN) | payer MEDICAID, OTHER ==
[~2021-10-31] VITALS: Ht 172.7 cm; Wt 110.7 kg
[~2021-10-31 01:49] MED LIST changes: +AMLO5TAB88 PO; +ASPI-1497 MT; +FURO40TA5 MT; +GLIP5TAB12 MT; +LISI20TA31 PO; +METO-539 MT; +TRAM50TA3 MT
[2021-10-31] MEDS ORDERED: NITROGLYCERIN OINT 1GM/INCH UDPKT TD ONE (02:15)
[2021-10-31] MEDS ORDERED: FUROSEMIDE 40MG/4ML VIAL IV ONE (02:15)
[2021-10-31 02:37] LABS: BASOPHILS % 0.4 % (0.0-2.0); EOSINOPHILS % 0.5 % (0.0-5.0); HEMATOCRIT. 39.1 % (42.0-52.0); HEMOGLOBIN. 12.5 g/dL (14.0-18.0); LYMPHOCYTES % 18.4 % (20.0-50.0); MEAN CORPUSCULAR HEMOGLOBIN 25.9 pg (28.0-32.0); MEAN CORPUSCULAR VOLUME 80.6 fL (80.0-94.0); MEAN PLATELET VOLUME 8.7 fl (7.4-10.4); MONOCYTES % 8.3 % (2.0-8.0); NEUTROPHILS % 72.4 % (40.0-76.0); PLATELET 240 x1000/uL (130-400); RED BLOOD CELL COUNT 4.85 mill/uL (4.7-6.1); RED CELL DISTRIBUTION WIDTH 14.9 % (11.6-14.6)
[2021-10-31 02:44] LABS: CHLORIDE 105 mEq/L (98-107)
[2021-10-31 02:44] LABS: BG CARBOXYHEMOGLOBIN 6.4 % (0.5-1.5); BG FRACTION INSPIRED OXYGEN 21; BG HCO3 ACT 18.5 mmol/L (22.0-26.0); BG METHEMOGLOBIN 0.3 % (0.0-1.5); BG OXYGEN SATURATION 94.6 % (92.0-98.5); BG OXYHEMOGLOBIN 88.3 % (94.0-97.0); BG PCO2 33.4 mmHg (35.0-45.0); BG PH 7.361 (7.350-7.450); BG PO2 81.3 mmHg (75.0-100.0); BG TOTAL HEMOGLOBIN 12.2 g/dL (12.0-18.0); BG VENT MODE ROOM AIR
[2021-10-31 02:48] LABS: ETHANOL BLOOD 42 mg/dL
[2021-10-31] MEDS ORDERED: AZITHROMYCIN 500MG/250ML 250 ML IV ONE (03:00)
[2021-10-31] MEDS ORDERED: CEFTRIAXONE 1 G PREMIX 50 ML IV ONE (03:00)
[2021-10-31] MEDS ORDERED: SODIUM CHLORIDE 0.9% 1,000 ML IV ONE (03:00)
[2021-10-31 03:37] LABS: *AMPHETAMINES SCREEN URINE NEGATIVE (NEGATIVE); *BARBITURATES SCREEN URINE NEGATIVE (NEGATIVE)
[2021-10-31 03:38] LABS: *BENZODIAZEPINES SCREEN URINE NEGATIVE (NEGATIVE); *COCAINE SCREEN URINE PRESUMTIVE POSITIVE (NEGATIVE); CANNABINOID URINE SCREEN NEGATIVE (NEGATIVE); METHADONE URINE SCREEN NEGATIVE (NEGATIVE); OPIATES URINE SCREEN PRESUMTIVE POSITIVE (NEGATIVE); PHENCYCLIDINE URINE SCREEN NEGATIVE (NEGATIVE)
[2021-10-31] MEDS ORDERED: MORPHINE SULFATE 4 MG/ML CPJ (NOT FOR IM USE) IV ONE (04:30)
[2021-10-31] MEDS ORDERED: MORPHINE SULFATE 4 MG/ML CPJ (NOT FOR IM USE) IV NR (04:30)
[2021-10-31] MEDS ORDERED: IOHEXOL-350 100 ML BOTTLE ONE ×2 (07:46→13:07)
[2021-10-31] MEDS ORDERED: ONDANSETRON HCL 4MG/2ML INJ IV PRN (11:30)
[2021-10-31] MEDS ORDERED: DEXTROSE 50% WATER 50ML SYRINGE IV PRN ×2 (11:30→23:30)
[2021-10-31] MEDS ORDERED: NALOXONE HCL 0.4MG/ML VIAL IV PRN (11:45)
[2021-10-31] MEDS: HYDROCODONE/ACETAMINOPHEN 5/325MG TABLET PO PRN ×2 (12:47→23:56)
[2021-10-31] MEDS: BLOOD SUGAR DIAGNOSTIC STRIP TEST SCH ×2 (13:48→17:52)
[2021-10-31] MEDS: INSULIN LISPRO 100 UNITS/ML SUBCUT SCH ×2 (13:53→19:08)
[2021-10-31] MEDS: IPRATROPIUM/ALBUTEROL 0.5-3(2.5)MG/3ML NEB HHN SCH ×2 (17:05→20:08)
[2021-10-31 21:00] VITALS: BP 124/61
[2021-10-31] MEDS ORDERED: HYDROCODONE/ACETAMINOPHEN 5/325MG TABLET PO PRN (23:30)
[2021-10-31] MEDS ORDERED: ACETAMINOPHEN 325MG TABLET PO PRN (23:30)
[2021-11-01] VITALS: BP 150/66
[2021-11-01] MEDS: IPRATROPIUM/ALBUTEROL 0.5-3(2.5)MG/3ML NEB HHN SCH ×3 (01:09→17:45)
[2021-11-01] MEDS ORDERED: CEFTRIAXONE 1,000 MG in DEXTROSE 5% WATER 50 ML IV SCH (03:00)
[2021-11-01 04:00] VITALS: BP 100/67
[2021-11-01] MEDS ORDERED: AZITHROMYCIN 500 MG in DEXT 5% WATER 250 ML IV SCH (04:00)
[2021-11-01] MEDS: BLOOD SUGAR DIAGNOSTIC STRIP TEST SCH ×3 (06:22→17:27)
[2021-11-01 08:00] VITALS: BP 134/90
[2021-11-01] MEDS ORDERED: ATORVASTATIN CALCIUM 20MG TABLET PO SCH (09:00)
[2021-11-01] MEDS ORDERED: CEFTRIAXONE 1 G PREMIX 50 ML IV SCH (09:00)
[2021-11-01] MEDS ORDERED: ASPIRIN 81MG TABLET PO SCH (09:00)
[2021-11-01] MEDS ORDERED: FAMOTIDINE 20MG TABLET PO SCH (09:00)
[2021-11-01] MEDS: HYDROCODONE/ACETAMINOPHEN 5/325MG TABLET PO PRN (09:35)
[2021-11-01] MEDS: GABAPENTIN 300MG CAPSULE PO SCH ×3 (09:36→17:44)
[2021-11-01] MEDS: METOPROLOL TARTRATE 50MG TABLET PO SCH ×2 (09:38→17:43)
[2021-11-01] MEDS: METFORMIN HCL 500MG TABLET PO SCH ×2 (09:38→17:43)
[2021-11-01] MEDS: INSULIN LISPRO 100 UNITS/ML SUBCUT SCH ×3 (09:40→17:27)
[2021-11-01] MEDS ORDERED: OMEPRAZOLE 20MG CAPSULE EXTENDED RELEASE PO SCH (10:30)
[2021-11-01 12:00] VITALS: BP 101/51
[2021-11-01] MEDS ORDERED: FLUT1DIS3 INH (14:39)
[2021-11-01] MEDS ORDERED: IPRA3AMP9 NEB (14:39)
[2021-11-01] MEDS ORDERED: P20 MT (14:39)
[2021-11-01] MEDS ORDERED: ALBU18HF2 IH (14:39)
[2021-11-01 16:00] VITALS: BP 122/50
[2021-11-01] MEDS ORDERED: METHYLPREDNISOLONE SOD SUCC 40 MG/ML VIAL IV SCH (17:00)
[2021-11-01 17:10] VITALS: BP 115/69
[2021-11-01] MEDS ORDERED: SERTRALINE HCL 100MG TABLET PO SCH (21:00)
== END 2021-11-01 18:59 | disposition home or self-care (01) | DRG 140 ==
LOC: ER 01:49 → 6WST 05:49 → ENRESERV 19:51
PROVIDERS: ADMIT Internal Medicine; ATTEND Internal Medicine
DX: J44.1 Chronic obstructive pulmonary disease with (acute) exacerbation (principal); J96.21 Acute and chronic respiratory failure with hypoxia; N17.9 Acute kidney failure, unspecified; E11.22 Type 2 diabetes mellitus with diabetic chronic kidney disease; E66.9 Obesity, unspecified; F14.90 Cocaine use, unspecified, uncomplicated; F17.210 Nicotine dependence, cigarettes, uncomplicated; I12.9 Hypertensive chronic kidney disease with stage 1 through stage 4 chronic kidney disease, or unspecified chronic kidney disease; N18.9 Chronic kidney disease, unspecified; F10.129 Alcohol abuse with intoxication, unspecified; Z20.822 Contact with and (suspected) exposure to COVID-19; Z68.41 Body mass index [BMI] 40.0-44.9, adult; Z82.49 Family history of ischemic heart disease and other diseases of the circulatory system; Z95.1 Presence of aortocoronary bypass graft; Z88.2 Allergy status to sulfonamides
CPT/HCPCS: 36415; 36600; 71045; 71275; 80053; 80305; 80320; 82375; 82805; 82962; 83605; 83880; 84484; 85025; 85379; 87426; 93005; 93306; 94640; 99291; C9803; J0456; J0696; J1815; J1940; J2270; J2920; J7040; J7060; Q9967; U0003; U0005; G0480

== ENCOUNTER 2021-11-05 03:53 | Emergency (ER) | payer MEDICAID, OTHER ==
[~2021-11-05] VITALS: Ht 175.3 cm; Wt 100.0 kg
[~2021-11-05 03:53] MED LIST changes: +IPRA3AMP9 NEB; +P20 MT
[2021-11-05] MEDS ORDERED: FUROSEMIDE 40MG/4ML VIAL IV ONE (04:45)
[2021-11-05] MEDS ORDERED: ASPIRIN 81MG TABLET PO ONE (04:45)
[2021-11-05] MEDS ORDERED: NITROGLYCERIN 0.4MG TABLET SL SL PRN (04:45)
[2021-11-05 05:47] LABS: BASOPHILS % 0.6 % (0.0-2.0); EOSINOPHILS % 0.5 % (0.0-5.0); HEMATOCRIT. 36.9 % (42.0-52.0); HEMOGLOBIN. 11.7 g/dL (14.0-18.0); LYMPHOCYTES % 24.2 % (20.0-50.0); MEAN CORPUSCULAR HEMOGLOBIN 25.1 pg (28.0-32.0); MEAN CORPUSCULAR VOLUME 79.7 fL (80.0-94.0); MEAN PLATELET VOLUME 8.9 fl (7.4-10.4); MONOCYTES % 7.4 % (2.0-8.0); NEUTROPHILS % 67.3 % (40.0-76.0); PLATELET 290 x1000/uL (130-400); RED BLOOD CELL COUNT 4.64 mill/uL (4.7-6.1); RED CELL DISTRIBUTION WIDTH 14.9 % (11.6-14.6)
[2021-11-05 05:55] LABS: CHLORIDE 109 mEq/L (98-107)
[2021-11-05 06:02] LABS: ETHANOL BLOOD 15 mg/dL
[2021-11-05 08:59] LABS: *AMPHETAMINES SCREEN URINE NEGATIVE (NEGATIVE); *BARBITURATES SCREEN URINE NEGATIVE (NEGATIVE); *BENZODIAZEPINES SCREEN URINE NEGATIVE (NEGATIVE); *COCAINE SCREEN URINE PRESUMTIVE POSITIVE (NEGATIVE)
[2021-11-05 09:00] LABS: CANNABINOID URINE SCREEN NEGATIVE (NEGATIVE); METHADONE URINE SCREEN NEGATIVE (NEGATIVE); OPIATES URINE SCREEN NEGATIVE (NEGATIVE); PHENCYCLIDINE URINE SCREEN NEGATIVE (NEGATIVE)
[2021-11-05] MEDS ORDERED: NALOXONE HCL 0.4MG/ML VIAL IV PRN (09:30)
[2021-11-05] MEDS ORDERED: HYDROCODONE/ACETAMINOPHEN 10/325MG TABLET PO PRN (09:30)
[2021-11-05 10:00] VITALS: BP 142/80
== END 2021-11-05 10:20 | disposition left against medical advice (07) ==
LOC: ER 04:09 → CANBEDREQ 11-06 10:03
DX: U07.1 COVID-19 (principal); I11.0 Hypertensive heart disease with heart failure; I50.9 Heart failure, unspecified; E78.00 Pure hypercholesterolemia, unspecified; E11.9 Type 2 diabetes mellitus without complications; J44.1 Chronic obstructive pulmonary disease with (acute) exacerbation; Z79.899 Other long term (current) drug therapy; Z79.82 Long term (current) use of aspirin
CPT/HCPCS: 36415; 71045; 80053; 80305; 80320; 83605; 83880; 84484; 85025; 87040; 87086; 87426; 87804; 93005; 96374; 99291; C1893; C9803; J1940; U0003; U0005; Z7610; G0480

== ENCOUNTER 2022-01-22 17:44 | Inpatient (IN) | payer MEDICAID ==
[~2022-01-22] VITALS: Ht 160 cm; Wt 88.5 kg
[2022-01-22] MEDS ORDERED: IPRATROPIUM BROMIDE (0.02%) 0.5MG/2.5ML NEB HHN STA ×2 (18:24→23:13)
[2022-01-22] MEDS ORDERED: ALBUTEROL (0.083%) 2.5MG/3ML NEB HHN SCH ×2 (18:30→23:13)
[2022-01-22 23:45] LABS: BASOPHILS % 1.1 % (0.0-2.0); EOSINOPHILS % 0.6 % (0.0-5.0); HEMATOCRIT. 37.3 % (42.0-52.0); HEMOGLOBIN. 11.8 g/dL (14.0-18.0); LYMPHOCYTES % 26.6 % (20.0-50.0); MEAN CORPUSCULAR HEMOGLOBIN 24.8 pg (28.0-32.0); MEAN CORPUSCULAR VOLUME 78.4 fL (80.0-94.0); MEAN PLATELET VOLUME 9.3 fl (7.4-10.4); MONOCYTES % 9.1 % (2.0-8.0); NEUTROPHILS % 62.6 % (40.0-76.0); PLATELET 252 x1000/uL (130-400); RED BLOOD CELL COUNT 4.76 mill/uL (4.7-6.1); RED CELL DISTRIBUTION WIDTH 16.2 % (11.6-14.6)
[2022-01-22 23:50] LABS: CHLORIDE 102 mEq/L (98-107)
[2022-01-23 05:00] VITALS: BP 109/50
[2022-01-23] MEDS ORDERED: DEXTROSE 50% WATER 50ML SYRINGE IV PRN (06:00)
[2022-01-23] MEDS ORDERED: IPRATROPIUM/ALBUTEROL 0.5-3(2.5)MG/3ML NEB HHN PRN ×2 (06:00→09:00)
[2022-01-23] MEDS ORDERED: BLOOD SUGAR DIAGNOSTIC STRIP TEST SCH (07:20)
[2022-01-23] MEDS ORDERED: INSULIN LISPRO 100 UNITS/ML SUBCUT SCH (07:50)
[2022-01-23 08:50] VITALS: BP 102/55
[2022-01-23] MEDS ORDERED: ENOXAPARIN 40MG/0.4ML SYR SUBCUT SCH (09:00)
[2022-01-23] MEDS ORDERED: ASPIRIN 81MG TABLET PO SCH (09:00)
[2022-01-23] MEDS ORDERED: INSULIN GLARGINE 100 UNITS/ML SUBCUT SCH (10:00)
[2022-01-23] MEDS ORDERED: MAGNESIUM/ALUMINUM HYDROXIDE/SIMETHICONE 30ML UDC PO PRN (10:30)
== END 2022-01-23 11:15 | disposition left against medical advice (07) | DRG 203 ==
LOC: ER 17:44 → MICUSO 01-23 00:12 → 6WST 01-23 04:00
PROVIDERS: ADMIT Internal Medicine; ATTEND Internal Medicine
DX: M94.0 Chondrocostal junction syndrome [Tietze] (principal); N17.9 Acute kidney failure, unspecified; D72.829 Elevated white blood cell count, unspecified; E11.65 Type 2 diabetes mellitus with hyperglycemia; E66.9 Obesity, unspecified; D64.9 Anemia, unspecified; I25.10 Atherosclerotic heart disease of native coronary artery without angina pectoris; F14.90 Cocaine use, unspecified, uncomplicated; F17.200 Nicotine dependence, unspecified, uncomplicated; I10 Essential (primary) hypertension; J44.9 Chronic obstructive pulmonary disease, unspecified; Z82.49 Family history of ischemic heart disease and other diseases of the circulatory system; Z95.1 Presence of aortocoronary bypass graft; Z79.82 Long term (current) use of aspirin; Z79.84 Long term (current) use of oral hypoglycemic drugs; Z79.899 Other long term (current) drug therapy; Z68.34 Body mass index [BMI] 34.0-34.9, adult; Z53.29 Procedure and treatment not carried out because of patient's decision for other reasons; Z71.51 Drug abuse counseling and surveillance of drug abuser; Z71.3 Dietary counseling and surveillance
CPT/HCPCS: 36415; 71045; 80053; 84484; 85025; 93005; 94640; 99285; J1650; J1815

== ENCOUNTER 2022-02-08 06:59 | Emergency (ER) | payer MEDICAID, OTHER ==
[~2022-02-08] VITALS: Ht 172.7 cm; Wt 84.0 kg
[2022-02-08 07:55] LABS: CHLORIDE 109 mEq/L (98-107)
[2022-02-08 07:57] LABS: BASOPHILS % 0.5 % (0.0-2.0); EOSINOPHILS % 0.9 % (0.0-5.0); HEMATOCRIT. 36.3 % (42.0-52.0); HEMOGLOBIN. 11.6 g/dL (14.0-18.0); LYMPHOCYTES % 15.4 % (20.0-50.0); MEAN CORPUSCULAR HEMOGLOBIN 25.3 pg (28.0-32.0); MEAN CORPUSCULAR VOLUME 79.3 fL (80.0-94.0); MEAN PLATELET VOLUME 9.2 fl (7.4-10.4); MONOCYTES % 9.8 % (2.0-8.0); NEUTROPHILS % 73.4 % (40.0-76.0); PLATELET 168 x1000/uL (130-400); RED BLOOD CELL COUNT 4.57 mill/uL (4.7-6.1); RED CELL DISTRIBUTION WIDTH 16.6 % (11.6-14.6)
[2022-02-08 07:59] LABS: ETHANOL BLOOD < 10 mg/dL
[2022-02-08] MEDS ORDERED: ASPIRIN 81MG TABLET PO ONE (08:30)
[2022-02-08] MEDS ORDERED: NITROGLYCERIN 0.4MG TABLET SL SL PRN (08:30)
[2022-02-08] MEDS ORDERED: FUROSEMIDE 40MG/4ML VIAL IV ONE (08:30)
[2022-02-08 09:40] LABS: *AMPHETAMINES SCREEN URINE NEGATIVE (NEGATIVE); *BENZODIAZEPINES SCREEN URINE NEGATIVE (NEGATIVE); *COCAINE SCREEN URINE PRESUMTIVE POSITIVE (NEGATIVE)
[2022-02-08 09:41] LABS: *BARBITURATES SCREEN URINE NEGATIVE (NEGATIVE); CANNABINOID URINE SCREEN NEGATIVE (NEGATIVE); METHADONE URINE SCREEN NEGATIVE (NEGATIVE); OPIATES URINE SCREEN NEGATIVE (NEGATIVE); PHENCYCLIDINE URINE SCREEN NEGATIVE (NEGATIVE)
[2022-02-08 13:26] VITALS: BP 117/68
[2022-02-08] MEDS ORDERED: ACETAMINOPHEN 325MG TABLET PO PRN (13:30)
[2022-02-08] MEDS ORDERED: IPRATROPIUM/ALBUTEROL 0.5-3(2.5)MG/3ML NEB HHN PRN (13:30)
[2022-02-08] MEDS ORDERED: ONDANSETRON HCL 4MG/2ML INJ IV PRN (13:30)
[2022-02-08] MEDS ORDERED: FUROSEMIDE 40MG/4ML VIAL IVP SCH (17:00)
[2022-02-08] MEDS ORDERED: GUAIFENESIN 600MG ER TABLET PO SCH (21:00)
== END 2022-02-08 13:30 | disposition left against medical advice (07) ==
LOC: ER 06:59 → EDBEDREQ 11:45 → ENRESERV 12:14 → CANRESERV 12:14 → ER 13:30 → CANBEDREQ 13:31
DX: I11.0 Hypertensive heart disease with heart failure (principal); I50.9 Heart failure, unspecified; F14.10 Cocaine abuse, uncomplicated; J44.1 Chronic obstructive pulmonary disease with (acute) exacerbation; E11.9 Type 2 diabetes mellitus without complications; Z79.899 Other long term (current) drug therapy
CPT/HCPCS: 36415; 71045; 80053; 80305; 80320; 83880; 84484; 85025; 93005; 96374; 99291; J1940; Z7610; G0480

== ENCOUNTER 2022-04-08 01:54 | Inpatient (IN) | payer MEDICAID, OTHER ==
[~2022-04-08] VITALS: Ht 170.2 cm; Wt 84.4 kg
[2022-04-08 05:15] LABS: BASOPHILS % 0.8 % (0.0-2.0); EOSINOPHILS % 0.7 % (0.0-5.0); HEMATOCRIT. 36.4 % (42.0-52.0); HEMOGLOBIN. 11.4 g/dL (14.0-18.0); LYMPHOCYTES % 26.9 % (20.0-50.0); MEAN CORPUSCULAR VOLUME 76.8 fL (80.0-94.0); MEAN PLATELET VOLUME 9.2 fl (7.4-10.4); MONOCYTES % 9.2 % (2.0-8.0); NEUTROPHILS % 62.4 % (40.0-76.0); PLATELET 202 x1000/uL (130-400); RED BLOOD CELL COUNT 4.74 mill/uL (4.7-6.1)
[2022-04-08 05:24] LABS: CHLORIDE 112 mEq/L (98-107)
[2022-04-08] MEDS ORDERED: SODIUM CHLORIDE 0.9% 1,000 ML IV ONE (05:30)
[2022-04-08] MEDS: ASPIRIN 81MG TABLET PO ONE ×2 (05:48→05:57)
[2022-04-08] MEDS: NITROGLYCERIN OINT 1GM/INCH UDPKT TD ONE ×2 (05:48→05:57)
[2022-04-08 07:34] LABS: CLARITY URINE CLEAR (CLEAR); COLOR URINE YELLOW (YELLOW); KETONES URINE NEGATIVE (NEGATIVE); LEUKOCYTE ESTERASE URINE NEGATIVE (NEGATIVE); NITRITE URINE NEGATIVE (NEGATIVE); OCCULT BLOOD URINE NEGATIVE (NEGATIVE); PROTEIN URINE NEGATIVE (NEGATIVE); SPECIFIC GRAVITY URINE 1.019 (1.005-1.030); UROBILINOGEN URINE 0.2 E.U./dL (0.2-1.0)
[2022-04-08] MEDS ORDERED: AZITHROMYCIN 500MG/250ML 250 ML IV NR (12:00)
[2022-04-08] MEDS ORDERED: CEFTRIAXONE 1 G PREMIX 50 ML IV NR (12:30)
[2022-04-08] MEDS ORDERED: ONDANSETRON HCL 4MG/2ML INJ IV PRN (13:45)
[2022-04-08] MEDS ORDERED: DOCUSATE SODIUM 100MG CAPSULE PO PRN (13:45)
[2022-04-08] MEDS ORDERED: LORAZEPAM 0.5MG TABLET PO PRN (13:45)
[2022-04-08] MEDS ORDERED: ACETAMINOPHEN 325MG TABLET PO PRN ×2 (13:45)
[2022-04-08] MEDS ORDERED: IPRATROPIUM/ALBUTEROL 0.5-3(2.5)MG/3ML NEB HHN PRN (13:45)
[2022-04-08] MEDS ORDERED: CLONIDINE 0.1MG TABLET PO PRN (13:45)
[2022-04-08 22:00] VITALS: BP 132/81
[2022-04-08 22:58] VITALS: BP 132/81
[2022-04-09] VITALS: BP 128/76
[2022-04-09 04:00] VITALS: BP 141/72
[2022-04-09 04:38] LABS: *AMPHETAMINES SCREEN URINE NEGATIVE (NEGATIVE); *BARBITURATES SCREEN URINE NEGATIVE (NEGATIVE); *BENZODIAZEPINES SCREEN URINE NEGATIVE (NEGATIVE); *COCAINE SCREEN URINE PRESUMTIVE POSITIVE (NEGATIVE); CANNABINOID URINE SCREEN NEGATIVE (NEGATIVE); METHADONE URINE SCREEN NEGATIVE (NEGATIVE); OPIATES URINE SCREEN NEGATIVE (NEGATIVE); PHENCYCLIDINE URINE SCREEN NEGATIVE (NEGATIVE)
[2022-04-09 08:00] VITALS: BP 137/70
[2022-04-09 12:00] VITALS: BP 139/71
[2022-04-09 16:00] VITALS: BP 142/73
[2022-04-09 20:00] VITALS: BP 128/74
[2022-04-09] MEDS: HYDROCODONE/ACETAMINOPHEN 5/325MG TABLET PO PRN (20:33)
[2022-04-10] VITALS: BP 137/83
[2022-04-10] MEDS: HYDROCODONE/ACETAMINOPHEN 5/325MG TABLET PO PRN ×4 (01:08→23:42)
[2022-04-10 04:00] VITALS: BP 123/44
[2022-04-10 08:00] VITALS: BP 107/75
[2022-04-10 12:00] VITALS: BP 114/59
[2022-04-10 16:00] VITALS: BP 119/76
[2022-04-10 23:58] VITALS: BP 109/74
[2022-04-11 04:00] VITALS: BP 128/68
[2022-04-11] MEDS: HYDROCODONE/ACETAMINOPHEN 5/325MG TABLET PO PRN ×2 (06:31→12:05)
[2022-04-11 08:00] VITALS: BP 128/77
[2022-04-11] MEDS ORDERED: COLCHICINE 0.6MG TABLET PO NR (10:15)
[2022-04-11] MEDS ORDERED: ALLOPURINOL 100 MG TABLET PO SCH (10:15)
[2022-04-11 12:00] VITALS: BP 127/68
[2022-04-11 16:00] VITALS: BP 114/55
[2022-04-11] MEDS ORDERED: NALOXONE HCL 0.4MG/ML VIAL IV PRN (16:30)
[2022-04-11] MEDS: HYDROCODONE/ACETAMINOPHEN 10/325MG TABLET PO PRN (16:34)
[2022-04-11 20:00] VITALS: BP 126/72
[2022-04-12] VITALS: BP 131/68
[2022-04-12 04:00] VITALS: BP 118/67
[2022-04-12 08:00] VITALS: BP 112/71
[2022-04-12] MEDS ORDERED: COLCHICINE 0.6MG TABLET PO SCH (09:00)
[2022-04-12] MEDS ORDERED: DEXTROSE 50% WATER 50ML SYRINGE IV PRN (11:30)
[2022-04-12 12:00] VITALS: BP 130/89
[2022-04-12] MEDS: AMIODARONE HCL 200 MG TABLET PO SCH ×2 (12:20→20:37)
[2022-04-12] MEDS: BLOOD SUGAR DIAGNOSTIC STRIP TEST SCH ×3 (12:22→20:31)
[2022-04-12] MEDS: FAMOTIDINE 20MG TABLET PO SCH (12:22)
[2022-04-12] MEDS: ASPIRIN 81MG EC TABLET PO SCH (12:22)
[2022-04-12] MEDS: INSULIN LISPRO 100 UNITS/ML SUBCUT SCH ×3 (12:26→20:35)
[2022-04-12] MEDS ORDERED: ENOXAPARIN 40MG/0.4ML SYR SUBCUT SCH (13:00)
[2022-04-12] MEDS: ENOXAPARIN 80MG/0.8ML SYR SUBCUT SCH ×2 (13:43→23:37)
[2022-04-12 16:00] VITALS: BP 135/82
[2022-04-12 16:24] LABS: PROTHROMBIN TIME 10.8 sec (9.6-11.0)
[2022-04-12 16:32] LABS: CHLORIDE 102 mEq/L (98-107)
[2022-04-12] MEDS: GABAPENTIN 300MG CAPSULE PO SCH ×2 (18:20→20:36)
[2022-04-12] MEDS: HYDROCODONE/ACETAMINOPHEN 10/325MG TABLET PO PRN (18:21)
[2022-04-12 20:00] VITALS: BP 111/68
[2022-04-12] MEDS: HYDROCODONE/ACETAMINOPHEN 5/325MG TABLET PO PRN (20:36)
[2022-04-12] MEDS: ATORVASTATIN CALCIUM 40MG TABLET PO SCH (20:37)
[2022-04-12] MEDS: SERTRALINE HCL 100MG TABLET PO SCH (20:37)
[2022-04-13] VITALS: BP 124/85
[2022-04-13 04:00] VITALS: BP 134/84
[2022-04-13] MEDS: INSULIN LISPRO 100 UNITS/ML SUBCUT SCH ×4 (05:25→21:00)
[2022-04-13] MEDS: BLOOD SUGAR DIAGNOSTIC STRIP TEST SCH ×4 (05:25→21:01)
[2022-04-13] MEDS: GABAPENTIN 300MG CAPSULE PO SCH ×3 (05:28→21:01)
[2022-04-13] MEDS: HYDROCODONE/ACETAMINOPHEN 10/325MG TABLET PO PRN ×3 (05:28→20:36)
[2022-04-13 08:00] VITALS: BP_SYST 107; BP_SYST 153; BP_DIAS 67; BP_DIAS 94
[2022-04-13] MEDS: ASPIRIN 81MG EC TABLET PO SCH (09:12)
[2022-04-13] MEDS: FAMOTIDINE 20MG TABLET PO SCH (09:12)
[2022-04-13] MEDS: ENOXAPARIN 80MG/0.8ML SYR SUBCUT SCH ×2 (09:12→20:35)
[2022-04-13] MEDS: AMIODARONE HCL 200 MG TABLET PO SCH ×2 (09:12→20:35)
[2022-04-13 10:03] LABS: HEMOGLOBIN. 12.2 g/dL (14.0-18.0); MEAN CORPUSCULAR HEMOGLOBIN 24.2 pg (28.0-32.0); MEAN CORPUSCULAR VOLUME 77.6 fL (80.0-94.0); MEAN PLATELET VOLUME 8.9 fl (7.4-10.4); PLATELET 219 x1000/uL (130-400); RED BLOOD CELL COUNT 5.02 mill/uL (4.7-6.1); RED CELL DISTRIBUTION WIDTH 16.4 % (11.6-14.6)
[2022-04-13 12:00] VITALS: BP 135/78
[2022-04-13] MEDS: SODIUM CHLORIDE 0.9% 1,000 ML IV SCH (13:32)
[2022-04-13 16:00] VITALS: BP 150/75
[2022-04-13 20:00] VITALS: BP 126/72
[2022-04-13] MEDS: ATORVASTATIN CALCIUM 40MG TABLET PO SCH (20:35)
[2022-04-13] MEDS: SERTRALINE HCL 100MG TABLET PO SCH (20:35)
[2022-04-14] VITALS (8 sets, daily range): BP systolic 128–150; BP diastolic 69–78
[2022-04-14] MEDS: HYDROCODONE/ACETAMINOPHEN 10/325MG TABLET PO PRN ×3 (05:11→21:02)
[2022-04-14] MEDS: GABAPENTIN 300MG CAPSULE PO SCH ×3 (05:11→20:50)
[2022-04-14] MEDS: SODIUM CHLORIDE 0.9% 1,000 ML IV SCH ×2 (05:12→18:53)
[2022-04-14] MEDS: BLOOD SUGAR DIAGNOSTIC STRIP TEST SCH ×4 (06:00→19:52)
[2022-04-14] MEDS: INSULIN LISPRO 100 UNITS/ML SUBCUT SCH ×4 (06:00→20:55)
[2022-04-14] MEDS: FAMOTIDINE 20MG TABLET PO SCH (08:54)
[2022-04-14] MEDS: ENOXAPARIN 80MG/0.8ML SYR SUBCUT SCH ×2 (08:54→20:50)
[2022-04-14] MEDS: AMIODARONE HCL 200 MG TABLET PO SCH ×2 (08:54→20:49)
[2022-04-14] MEDS: ASPIRIN 81MG EC TABLET PO SCH (08:54)
[2022-04-14 11:43] LABS: PLATELET ESTIMATE NORMAL
[2022-04-14] MEDS: SERTRALINE HCL 100MG TABLET PO SCH (20:50)
[2022-04-14] MEDS: ATORVASTATIN CALCIUM 40MG TABLET PO SCH (20:50)
[2022-04-15] VITALS: BP 133/79
[2022-04-15 04:00] VITALS: BP 150/70
[2022-04-15] MEDS: BLOOD SUGAR DIAGNOSTIC STRIP TEST SCH ×4 (05:02→20:14)
[2022-04-15] MEDS: GABAPENTIN 300MG CAPSULE PO SCH ×3 (05:26→21:20)
[2022-04-15] MEDS: INSULIN LISPRO 100 UNITS/ML SUBCUT SCH ×4 (05:26→21:00)
[2022-04-15 08:00] VITALS: BP 134/79
[2022-04-15] MEDS: FAMOTIDINE 20MG TABLET PO SCH (08:30)
[2022-04-15] MEDS: AMIODARONE HCL 200 MG TABLET PO SCH ×2 (08:31→21:20)
[2022-04-15] MEDS: ASPIRIN 81MG EC TABLET PO SCH (08:31)
[2022-04-15] MEDS: HYDROCODONE/ACETAMINOPHEN 10/325MG TABLET PO PRN ×2 (08:32→18:39)
[2022-04-15] MEDS: ENOXAPARIN 80MG/0.8ML SYR SUBCUT SCH ×2 (08:33→21:20)
[2022-04-15 11:39] LABS: BASOPHILS % 0.6 % (0.0-2.0); EOSINOPHILS % 2.2 % (0.0-5.0); HEMATOCRIT. 33.9 % (42.0-52.0); HEMOGLOBIN. 10.7 g/dL (14.0-18.0); LYMPHOCYTES % 27.6 % (20.0-50.0); MEAN CORPUSCULAR HEMOGLOBIN 24.4 pg (28.0-32.0); MEAN CORPUSCULAR VOLUME 77.5 fL (80.0-94.0); MEAN PLATELET VOLUME 8.6 fl (7.4-10.4); MONOCYTES % 11.7 % (2.0-8.0); NEUTROPHILS % 57.9 % (40.0-76.0); PLATELET 203 x1000/uL (130-400); RED BLOOD CELL COUNT 4.37 mill/uL (4.7-6.1); RED CELL DISTRIBUTION WIDTH 15.7 % (11.6-14.6)
[2022-04-15 11:55] LABS: CHLORIDE 108 mEq/L (98-107)
[2022-04-15 12:00] VITALS: BP 140/74
[2022-04-15 16:00] VITALS: BP 128/62
[2022-04-15 20:00] VITALS: BP 143/72
[2022-04-15] MEDS: SERTRALINE HCL 100MG TABLET PO SCH (21:20)
[2022-04-15] MEDS: ATORVASTATIN CALCIUM 40MG TABLET PO SCH (21:20)
[2022-04-16] VITALS: BP 141/71
[2022-04-16 04:00] VITALS: BP_SYST 133; BP_SYST 150; BP_DIAS 59; BP_DIAS 76
[2022-04-16] MEDS: BLOOD SUGAR DIAGNOSTIC STRIP TEST SCH ×4 (05:04→22:40)
[2022-04-16] MEDS: INSULIN LISPRO 100 UNITS/ML SUBCUT SCH ×4 (05:06→22:40)
[2022-04-16] MEDS: GABAPENTIN 300MG CAPSULE PO SCH ×3 (05:06→22:41)
[2022-04-16 06:49] LABS: BASOPHILS % 0.6 % (0.0-2.0); EOSINOPHILS % 3.2 % (0.0-5.0); HEMATOCRIT. 32.8 % (42.0-52.0); HEMOGLOBIN. 10.4 g/dL (14.0-18.0); LYMPHOCYTES % 33.9 % (20.0-50.0); MEAN CORPUSCULAR HEMOGLOBIN 24.2 pg (28.0-32.0); MEAN PLATELET VOLUME 8.8 fl (7.4-10.4); NEUTROPHILS % 49.3 % (40.0-76.0); PLATELET 194 x1000/uL (130-400); RED BLOOD CELL COUNT 4.31 mill/uL (4.7-6.1); RED CELL DISTRIBUTION WIDTH 15.6 % (11.6-14.6)
[2022-04-16 07:03] LABS: CHLORIDE 108 mEq/L (98-107)
[2022-04-16 08:00] VITALS: BP 136/69
[2022-04-16] MEDS: ENOXAPARIN 80MG/0.8ML SYR SUBCUT SCH ×2 (08:47→22:37)
[2022-04-16] MEDS: SODIUM CHLORIDE 0.9% 1,000 ML IV SCH ×2 (08:47→10:30)
[2022-04-16] MEDS: ASPIRIN 81MG EC TABLET PO SCH (08:48)
[2022-04-16] MEDS: FAMOTIDINE 20MG TABLET PO SCH (08:48)
[2022-04-16] MEDS: AMIODARONE HCL 200 MG TABLET PO SCH ×2 (08:48→22:38)
[2022-04-16] MEDS: HYDROCODONE/ACETAMINOPHEN 10/325MG TABLET PO PRN ×3 (08:53→22:38)
[2022-04-16 11:55] VITALS: BP 144/81
[2022-04-16 16:00] VITALS: BP 151/80
[2022-04-16] MEDS ORDERED: NALOXONE HCL 0.4MG/ML VIAL IV PRN (18:45)
[2022-04-16] MEDS ORDERED: NALOXONE HCL 0.4 MG/ML 1ML VIAL IV ONE (18:45)
[2022-04-16 20:00] VITALS: BP 148/74
[2022-04-16] MEDS: SERTRALINE HCL 100MG TABLET PO SCH (22:39)
[2022-04-16] MEDS: ATORVASTATIN CALCIUM 40MG TABLET PO SCH (22:39)
[2022-04-17] VITALS: BP 142/74
[2022-04-17 04:00] VITALS: BP 145/74
[2022-04-17] MEDS: BLOOD SUGAR DIAGNOSTIC STRIP TEST SCH ×4 (06:04→21:00)
[2022-04-17] MEDS: GABAPENTIN 300MG CAPSULE PO SCH ×3 (06:04→20:53)
[2022-04-17] MEDS: INSULIN LISPRO 100 UNITS/ML SUBCUT SCH ×4 (06:11→21:01)
[2022-04-17] MEDS: HYDROCODONE/ACETAMINOPHEN 10/325MG TABLET PO PRN ×3 (06:14→20:53)
[2022-04-17 08:00] VITALS: BP 117/66
[2022-04-17] MEDS: ASPIRIN 81MG EC TABLET PO SCH (09:40)
[2022-04-17] MEDS: FAMOTIDINE 20MG TABLET PO SCH (09:40)
[2022-04-17] MEDS: AMIODARONE HCL 200 MG TABLET PO SCH ×2 (09:40→20:53)
[2022-04-17] MEDS: ENOXAPARIN 80MG/0.8ML SYR SUBCUT SCH ×2 (09:41→21:00)
[2022-04-17 12:00] VITALS: BP 121/67
[2022-04-17 16:00] VITALS: BP 133/76
[2022-04-17 20:00] VITALS: BP 139/81
[2022-04-17] MEDS: SERTRALINE HCL 100MG TABLET PO SCH (20:52)
[2022-04-17] MEDS: ATORVASTATIN CALCIUM 40MG TABLET PO SCH (20:53)
[2022-04-18] VITALS: BP 130/80
[2022-04-18 04:00] VITALS: BP 148/71
[2022-04-18] MEDS: SODIUM CHLORIDE 0.9% 1,000 ML IV SCH (05:24)
[2022-04-18] MEDS: BLOOD SUGAR DIAGNOSTIC STRIP TEST SCH ×3 (05:58→17:20)
[2022-04-18] MEDS: GABAPENTIN 300MG CAPSULE PO SCH ×2 (05:59→14:00)
[2022-04-18] MEDS: INSULIN LISPRO 100 UNITS/ML SUBCUT SCH ×3 (05:59→17:50)
[2022-04-18 08:00] VITALS: BP 130/67
[2022-04-18] MEDS: AMIODARONE HCL 200 MG TABLET PO SCH (08:31)
[2022-04-18] MEDS: FAMOTIDINE 20MG TABLET PO SCH (08:32)
[2022-04-18] MEDS: ASPIRIN 81MG EC TABLET PO SCH (08:32)
[2022-04-18] MEDS: HYDROCODONE/ACETAMINOPHEN 10/325MG TABLET PO PRN (08:32)
[2022-04-18] MEDS: ENOXAPARIN 80MG/0.8ML SYR SUBCUT SCH (08:33)
[2022-04-18 16:00] VITALS: BP 109/67
[2022-04-18] MEDS ORDERED: AMI2 MT (16:14)
[2022-04-18 16:17] VITALS: BP 109/67
== END 2022-04-18 19:30 | DRG 816 ==
LOC: ER 02:03 → EDBEDREQSVC 10:34 → EDBEDREQTM 10:34 → EDBEDREQ 10:34 → 8WST 11:54 → EDBEDREQTM 11:56 → EDBEDREQ 11:56 → CANRESERV 19:54 → ENRESERV 19:54 → 6EST 04-18 10:54
PROVIDERS: ADMIT Internal Medicine; ATTEND Internal Medicine
DX: T40.5X1A Poisoning by cocaine, accidental (unintentional), initial encounter (principal); J96.01 Acute respiratory failure with hypoxia; I47.2 Ventricular tachycardia; J68.0 Bronchitis and pneumonitis due to chemicals, gases, fumes and vapors; E11.42 Type 2 diabetes mellitus with diabetic polyneuropathy; D50.9 Iron deficiency anemia, unspecified; D64.9 Anemia, unspecified; E11.51 Type 2 diabetes mellitus with diabetic peripheral angiopathy without gangrene; D75.839 Thrombocytosis, unspecified; I25.10 Atherosclerotic heart disease of native coronary artery without angina pectoris; I11.0 Hypertensive heart disease with heart failure; I50.9 Heart failure, unspecified; E78.5 Hyperlipidemia, unspecified; F14.10 Cocaine abuse, uncomplicated; F17.210 Nicotine dependence, cigarettes, uncomplicated; R63.4 Abnormal weight loss; Z20.822 Contact with and (suspected) exposure to COVID-19; R76.11 Nonspecific reaction to tuberculin skin test without active tuberculosis; I16.0 Hypertensive urgency; I70.201 Unspecified atherosclerosis of native arteries of extremities, right leg; M10.9 Gout, unspecified; E78.00 Pure hypercholesterolemia, unspecified; N28.9 Disorder of kidney and ureter, unspecified; Z59.00 Homelessness unspecified; Z78.9 Other specified health status; Z82.49 Family history of ischemic heart disease and other diseases of the circulatory system; Z79.84 Long term (current) use of oral hypoglycemic drugs; Z86.11 Personal history of tuberculosis; Z95.1 Presence of aortocoronary bypass graft; Z79.899 Other long term (current) drug therapy; Z79.4 Long term (current) use of insulin; Y92.89 Other specified places as the place of occurrence of the external cause; Z68.29 Body mass index [BMI] 29.0-29.9, adult
CPT/HCPCS: 36415; 71045; 73630; 80048; 80053; 80305; 81003; 82962; 83605; 83735; 83880; 84145; 84484; 85025; 85379; 87116; 87426; 93923; 97116; 97162; 97166; 97530; 99285; C9803; J0456; J0696; J1650; J1815; J7030

== ENCOUNTER 2022-11-23 12:22 | Inpatient (IN) | payer MEDICARE, MEDICAID ==
[~2022-11-23] VITALS: Ht 165.1 cm; Wt 86.2 kg
[~2022-11-23 12:22] MED LIST changes: -ALBU18HF2 IH; +AMI2 MT; -AMLO5TAB88 PO; -ASPI-1497 MT; -BENZ100C86 PO; -DIPH50CA38 PO; -FURO40TA5 MT; -GLIP5TAB12 MT; +GLUC1KIT IM; +HYDR-4009 MT; +INSU100V37 SQ; -IPRA3AMP9 NEB; -LISI20TA31 PO; -LOSA50TA41 PO; -METF-416 PO; -METO-539 MT; +NALO4SPR BOTHNSTRLS; -NAPR-681 PO; -P20 MT; -TRAM50TA3 MT
[2022-11-23] MEDS ORDERED: MORPHINE SULFATE 4 MG/ML CPJ (NOT FOR IM USE) IV ONE (12:45)
[2022-11-23 13:11] LABS: BASOPHILS % 0.8 % (0.0-2.0); HEMATOCRIT. 41.4 % (42.0-52.0); HEMOGLOBIN. 13.1 g/dL (14.0-18.0); LYMPHOCYTES % 25.7 % (20.0-50.0); MEAN CORPUSCULAR HEMOGLOBIN 24.3 pg (28.0-32.0); MEAN CORPUSCULAR VOLUME 76.9 fL (80.0-94.0); MEAN PLATELET VOLUME 9.2 fl (7.4-10.4); MONOCYTES % 11.5 % (2.0-8.0); PLATELET 204 x1000/uL (130-400); RED BLOOD CELL COUNT 5.38 mill/uL (4.7-6.1); RED CELL DISTRIBUTION WIDTH 16.5 % (11.6-14.6)
[2022-11-23] MEDS ORDERED: FUROSEMIDE 40MG/4ML VIAL IVP ONE (13:15)
[2022-11-23 13:16] LABS: CHLORIDE 108 mEq/L (98-107)
[2022-11-23] MEDS ORDERED: ACETAMINOPHEN 325MG TABLET PO PRN ×2 (16:00)
[2022-11-23] MEDS ORDERED: DOCUSATE SODIUM 100MG CAPSULE PO PRN (16:00)
[2022-11-23] MEDS ORDERED: CLONIDINE 0.1MG TABLET PO PRN (16:00)
[2022-11-23] MEDS ORDERED: IPRATROPIUM/ALBUTEROL 0.5-3(2.5)MG/3ML NEB HHN PRN (16:15)
[2022-11-23] MEDS ORDERED: DEXTROSE 50% WATER 50ML SYRINGE IV PRN (16:30)
[2022-11-23] MEDS ORDERED: SODIUM POLYSTYRENE SULFONATE 15 G/60 ML BOT PO NR (17:00)
[2022-11-23] MEDS: ENOXAPARIN 40MG/0.4ML SYR SUBCUT SCH (17:56)
[2022-11-23] MEDS: SODIUM CHLORIDE 0.45% 1,000 ML IV SCH (17:56)
[2022-11-23] MEDS: INSULIN LISPRO 100 UNITS/ML SUBCUT SCH ×2 (17:57→21:00)
[2022-11-23] MEDS: ATORVASTATIN CALCIUM 40MG TABLET PO SCH (17:57)
[2022-11-23] MEDS: BLOOD SUGAR DIAGNOSTIC STRIP TEST SCH ×2 (17:57→21:03)
[2022-11-23] MEDS: AMIODARONE HCL 200 MG TABLET PO SCH (18:00)
[2022-11-23] MEDS: SERTRALINE HCL 50MG TABLET PO SCH (21:24)
[2022-11-23 23:42] LABS: CREATINE KINASE MB FRACTION 2.2 ng/mL (0.5-3.6)
[2022-11-24] MEDS: BLOOD SUGAR DIAGNOSTIC STRIP TEST SCH ×4 (06:56→20:17)
[2022-11-24] MEDS: INSULIN LISPRO 100 UNITS/ML SUBCUT SCH ×4 (07:00→20:18)
[2022-11-24 10:00] VITALS: BP 117/63
[2022-11-24] MEDS ORDERED: ALBUTEROL (0.083%) 2.5MG/3ML NEB HHN PRN (10:30)
[2022-11-24] MEDS ORDERED: IPRATROPIUM BROMIDE (0.02%) 0.5MG/2.5ML NEB HHN PRN (10:30)
[2022-11-24] MEDS: ASPIRIN 81MG EC TABLET PO SCH (10:38)
[2022-11-24] MEDS: AMIODARONE HCL 200 MG TABLET PO SCH ×2 (10:38→18:00)
[2022-11-24] MEDS: PANTOPRAZOLE SODIUM 40 MG/VIAL IV SCH (10:38)
[2022-11-24 12:00] VITALS: BP 133/71
[2022-11-24] MEDS: TAMSULOSIN HCL 0.4MG SR CAPSULE PO SCH (13:35)
[2022-11-24 16:00] VITALS: BP 134/63
[2022-11-24 16:15] LABS: CHLORIDE 106 mEq/L (98-107)
[2022-11-24 16:25] LABS: CREATINE KINASE 92 IU/L (39-308); CREATINE KINASE MB FRACTION 2.3 ng/mL (0.5-3.6); HDL CHOLESTEROL 38 mg/dL (40-59); HEMATOCRIT. 39.1 % (42.0-52.0); HEMOGLOBIN. 12.3 g/dL (14.0-18.0); LDL CHOLESTEROL 82 mg/dL (5-100); MEAN CORPUSCULAR HEMOGLOBIN 24.5 pg (28.0-32.0); MEAN CORPUSCULAR VOLUME 77.6 fL (80.0-94.0); MEAN PLATELET VOLUME 9.4 fl (7.4-10.4); PLATELET 189 x1000/uL (130-400); RED BLOOD CELL COUNT 5.03 mill/uL (4.7-6.1); RED CELL DISTRIBUTION WIDTH 16.7 % (11.6-14.6)
[2022-11-24 16:47] LABS: PLATELET ESTIMATE NORMAL
[2022-11-24] MEDS: SODIUM CHLORIDE 0.45% 1,000 ML IV SCH (17:59)
[2022-11-24] MEDS: ATORVASTATIN CALCIUM 40MG TABLET PO SCH (18:00)
[2022-11-24] MEDS: ENOXAPARIN 40MG/0.4ML SYR SUBCUT SCH (18:00)
[2022-11-24 20:00] VITALS: BP 124/93
[2022-11-24] MEDS ORDERED: NITROGLYCERIN 0.4MG TABLET SL SL PRN (20:00)
[2022-11-24] MEDS: SERTRALINE HCL 50MG TABLET PO SCH (20:13)
[2022-11-24] MEDS ORDERED: HYDROCODONE/ACETAMINOPHEN 5/325MG TABLET PO NR (20:30)
[2022-11-24 21:40] LABS: CLARITY URINE CLEAR (CLEAR); COLOR URINE YELLOW (YELLOW); KETONES URINE TRACE (NEGATIVE); LEUKOCYTE ESTERASE URINE NEGATIVE (NEGATIVE); NITRITE URINE NEGATIVE (NEGATIVE); OCCULT BLOOD URINE NEGATIVE (NEGATIVE); PH URINE 5.5 (4.5-8.0); PROTEIN URINE TRACE (NEGATIVE); SPECIFIC GRAVITY URINE 1.017 (1.005-1.030); UROBILINOGEN URINE 0.2 E.U./dL (0.2-1.0)
[2022-11-24 21:56] LABS: *AMPHETAMINES SCREEN URINE NEGATIVE (NEGATIVE); *BARBITURATES SCREEN URINE NEGATIVE (NEGATIVE); *BENZODIAZEPINES SCREEN URINE NEGATIVE (NEGATIVE); *COCAINE SCREEN URINE PRESUMTIVE POSITIVE (NEGATIVE); CANNABINOID URINE SCREEN NEGATIVE (NEGATIVE); METHADONE URINE SCREEN NEGATIVE (NEGATIVE); OPIATES URINE SCREEN NEGATIVE (NEGATIVE); PHENCYCLIDINE URINE SCREEN NEGATIVE (NEGATIVE)
[2022-11-25] VITALS: BP 113/59
[2022-11-25 04:00] VITALS: BP 131/87
[2022-11-25] MEDS: BLOOD SUGAR DIAGNOSTIC STRIP TEST SCH ×2 (07:53→12:08)
[2022-11-25] MEDS: INSULIN LISPRO 100 UNITS/ML SUBCUT SCH ×2 (07:54→12:49)
[2022-11-25 08:00] VITALS: BP 133/66
[2022-11-25] MEDS: TAMSULOSIN HCL 0.4MG SR CAPSULE PO SCH (08:48)
[2022-11-25] MEDS: ASPIRIN 81MG EC TABLET PO SCH (08:48)
[2022-11-25] MEDS: PANTOPRAZOLE SODIUM 40 MG/VIAL IV SCH (08:48)
[2022-11-25] MEDS: SODIUM CHLORIDE 0.45% 1,000 ML IV SCH (08:48)
[2022-11-25 12:00] VITALS: BP 143/68
[2022-11-25 15:31] LABS: HEMATOCRIT 36.5 % (42.0-52.0); HEMOGLOBIN 11.7 g/dL (14.0-18.0); MEAN CORPUSCULAR HEMOGLOBIN 24.8 pg (28.0-32.0); PLATELET 183 x1000/uL (130-400); RED BLOOD CELL COUNT 4.73 mill/uL (4.7-6.1); RED CELL DISTRIBUTION WIDTH 16.1 % (11.6-14.6)
[2022-11-25 15:36] LABS: CHLORIDE 104 mEq/L (98-107)
[2022-11-25 16:00] VITALS: BP 115/53
[2022-11-25] MEDS ORDERED: TAMS-11 PO (16:03)
[2022-11-25 16:15] VITALS: BP 128/66
[2022-11-25] MEDS: ATORVASTATIN CALCIUM 40MG TABLET PO SCH (16:28)
[2022-11-25] MEDS: ENOXAPARIN 40MG/0.4ML SYR SUBCUT SCH (16:28)
[2022-11-26] MEDS ORDERED: FAMOTIDINE 20MG TABLET PO SCH (09:00)
== END 2022-11-25 18:03 | disposition home or self-care (01) | DRG 816 ==
LOC: ER 12:22 → MICUSO 15:04 → EDBEDREQ 15:07 → EDBEDREQTM 15:07 → 7WST 11-24 10:24
PROVIDERS: ADMIT Internal Medicine; ATTEND Internal Medicine
DX: T40.5X1A Poisoning by cocaine, accidental (unintentional), initial encounter (principal); I50.33 Acute on chronic diastolic (congestive) heart failure; I47.20 Ventricular tachycardia, unspecified; I25.110 Atherosclerotic heart disease of native coronary artery with unstable angina pectoris; N17.9 Acute kidney failure, unspecified; D75.839 Thrombocytosis, unspecified; E78.00 Pure hypercholesterolemia, unspecified; E11.51 Type 2 diabetes mellitus with diabetic peripheral angiopathy without gangrene; E87.5 Hyperkalemia; F14.10 Cocaine abuse, uncomplicated; F41.9 Anxiety disorder, unspecified; I11.0 Hypertensive heart disease with heart failure; F32.A Depression, unspecified; J44.9 Chronic obstructive pulmonary disease, unspecified; N40.0 Benign prostatic hyperplasia without lower urinary tract symptoms; F17.210 Nicotine dependence, cigarettes, uncomplicated; K76.0 Fatty (change of) liver, not elsewhere classified; Z82.49 Family history of ischemic heart disease and other diseases of the circulatory system; Z79.4 Long term (current) use of insulin; Z79.82 Long term (current) use of aspirin; Z95.1 Presence of aortocoronary bypass graft; Z79.51 Long term (current) use of inhaled steroids
CPT/HCPCS: 36415; 71045; 76700; 80053; 80061; 80305; 81003; 82550; 82553; 82962; 83036; 83735; 83880; 84153; 84300; 84484; 85025; 85027; 93005; 99285; C9113; J1650; J1940; J2270; G0103

== ENCOUNTER 2022-12-30 12:00 | Inpatient (IN) | payer MEDICARE, OTHER ==
[~2022-12-30] VITALS: Ht 160 cm; Wt 86.6 kg
[~2022-12-30 12:00] MED LIST changes: -AMI2 MT; -HYDR-4009 MT; -INSU100V37 SQ; +TAMS-11 PO
[2022-12-30 13:15] LABS: BASOPHILS % 0.9 % (0.0-2.0); EOSINOPHILS % 0.7 % (0.0-5.0); HEMATOCRIT. 40.2 % (42.0-52.0); HEMOGLOBIN. 12.7 g/dL (14.0-18.0); LYMPHOCYTES % 28.7 % (20.0-50.0); MEAN CORPUSCULAR HEMOGLOBIN 24.5 pg (28.0-32.0); MEAN CORPUSCULAR VOLUME 77.6 fL (80.0-94.0); MEAN PLATELET VOLUME 9.1 fl (7.4-10.4); MONOCYTES % 13.4 % (2.0-8.0); NEUTROPHILS % 56.3 % (40.0-76.0); PLATELET 243 x1000/uL (130-400); RED BLOOD CELL COUNT 5.18 mill/uL (4.7-6.1); RED CELL DISTRIBUTION WIDTH 16.4 % (11.6-14.6)
[2022-12-30] MEDS ORDERED: MORPHINE SULFATE 4 MG/ML CPJ (NOT FOR IM USE) IV NR ×2 (13:15→15:30)
[2022-12-30 13:23] LABS: CHLORIDE 109 mEq/L (98-107)
[2022-12-30] MEDS ORDERED: HYDROCODONE/ACETAMINOPHEN 5/325MG TABLET PO ONE (16:15)
[2022-12-30] MEDS ORDERED: SODIUM CHLORIDE 0.9% 1,000 ML IV ONE (17:00)
[2022-12-30 21:35] LABS: CLARITY URINE CLEAR (CLEAR); COLOR URINE YELLOW (YELLOW); KETONES URINE NEGATIVE (NEGATIVE); LEUKOCYTE ESTERASE URINE NEGATIVE (NEGATIVE); NITRITE URINE NEGATIVE (NEGATIVE); OCCULT BLOOD URINE NEGATIVE (NEGATIVE); PROTEIN URINE NEGATIVE (NEGATIVE); SPECIFIC GRAVITY URINE 1.013 (1.005-1.030); UROBILINOGEN URINE 0.2 E.U./dL (0.2-1.0)
[2022-12-30] MEDS ORDERED: ACETAMINOPHEN 325MG TABLET PO PRN ×2 (22:15)
[2022-12-30] MEDS ORDERED: DEXTROSE 50% WATER 50ML SYRINGE IV PRN (22:15)
[2022-12-30] MEDS ORDERED: MAGNESIUM/ALUMINUM HYDROXIDE/SIMETHICONE 30ML UDC PO PRN (22:15)
[2022-12-30] MEDS ORDERED: DOCUSATE SODIUM 100MG CAPSULE PO PRN (22:15)
[2022-12-30] MEDS ORDERED: IPRATROPIUM/ALBUTEROL 0.5-3(2.5)MG/3ML NEB HHN PRN (22:15)
[2022-12-30] MEDS ORDERED: GUAIFENESIN 200MG/10ML SUGAR FREE UDC PO PRN (22:15)
[2022-12-30] MEDS ORDERED: CLONIDINE 0.1MG TABLET PO PRN ×2 (22:15→23:15)
[2022-12-30] MEDS ORDERED: ONDANSETRON HCL 4MG/2ML INJ IV PRN (22:15)
[2022-12-30] MEDS ORDERED: LORAZEPAM 2MG/ML CPJ IV PRN (23:15)
[2022-12-30] MEDS ORDERED: MVI, ADULT NO.1 10 ML, FOLIC ACID 1 MG, THIAMINE HCL 100 MG in SODIUM CHLORIDE 0.9% 1,0... IV SCH ×4 (23:30)
[2022-12-30] MEDS ORDERED: SODIUM CHLORIDE 0.9% 1,000 ML IV SCH (23:30)
[2022-12-30] MEDS: SODIUM CHLORIDE 0.9% 1,000 ML IV SCH (23:59)
[2022-12-30] MEDS: KETOROLAC 15MG/ML VIAL IV PRN (23:59)
[2022-12-31] VITALS (7 sets, daily range): BP systolic 109–133; BP diastolic 29–72
[2022-12-31] MEDS: MORPHINE SULFATE 2 MG/ML CPJ (NOT FOR IM USE) IV PRN ×2 (01:25→18:31)
[2022-12-31 01:27] LABS: TOTAL IRON BINDING CAPACITY 342 ug/dL (250-450)
[2022-12-31] MEDS: SODIUM CHLORIDE 0.9% 1,000 ML IV SCH (03:00)
[2022-12-31 03:40] LABS: *AMPHETAMINES SCREEN URINE NEGATIVE (NEGATIVE); *BARBITURATES SCREEN URINE NEGATIVE (NEGATIVE); *BENZODIAZEPINES SCREEN URINE NEGATIVE (NEGATIVE); *COCAINE SCREEN URINE PRESUMTIVE POSITIVE (NEGATIVE); CANNABINOID URINE SCREEN NEGATIVE (NEGATIVE); METHADONE URINE SCREEN NEGATIVE (NEGATIVE); OPIATES URINE SCREEN PRESUMTIVE POSITIVE (NEGATIVE); PHENCYCLIDINE URINE SCREEN NEGATIVE (NEGATIVE)
[2022-12-31] MEDS: BLOOD SUGAR DIAGNOSTIC STRIP TEST SCH ×4 (07:20→21:00)
[2022-12-31] MEDS: INSULIN LISPRO 100 UNITS/ML SUBCUT SCH ×4 (07:50→22:52)
[2022-12-31] MEDS ORDERED: PNEUMOCOCCAL 23-VAL P-SAC VAC 0.5 ML IM ONE (09:00)
[2022-12-31] MEDS ORDERED: ENOXAPARIN 30MG/0.3ML SYR SUBCUT SCH (09:00)
[2022-12-31] MEDS ORDERED: FAMOTIDINE 20MG/2ML VIAL IV SCH (09:00)
[2022-12-31] MEDS ORDERED: INFLUENZA VACCINE 05/PF 0.5 ML SYRINGE IM ONE (09:00)
[2022-12-31 09:06] LABS: BASOPHILS % 0.8 % (0.0-2.0); EOSINOPHILS % 1.1 % (0.0-5.0); HEMATOCRIT. 38.1 % (42.0-52.0); HEMOGLOBIN. 12.1 g/dL (14.0-18.0); LYMPHOCYTES % 44.9 % (20.0-50.0); MEAN CORPUSCULAR HEMOGLOBIN 24.7 pg (28.0-32.0); MEAN PLATELET VOLUME 9.2 fl (7.4-10.4); MONOCYTES % 13.2 % (2.0-8.0); PLATELET 203 x1000/uL (130-400); RED BLOOD CELL COUNT 4.88 mill/uL (4.7-6.1); RED CELL DISTRIBUTION WIDTH 16.3 % (11.6-14.6)
[2022-12-31 09:25] LABS: CHLORIDE 113 mEq/L (98-107)
[2022-12-31 09:40] LABS: HDL CHOLESTEROL 38 mg/dL (40-59); LDL CHOLESTEROL 112 mg/dL (5-100); T4 FREE 1.34 ng/dL (0.76-1.46)
[2022-12-31] MEDS: KETOROLAC 15MG/ML VIAL IV PRN ×2 (10:06→17:39)
[2022-12-31] MEDS: ASPIRIN 81MG EC TABLET PO SCH (10:07)
[2022-12-31] MEDS: TAMSULOSIN HCL 0.4MG SR CAPSULE PO SCH (10:07)
[2022-12-31] MEDS: ENOXAPARIN 30MG/0.3ML SYR SUBCUT SCH (10:08)
[2022-12-31] MEDS ORDERED: NALOXONE HCL 0.4MG/ML VIAL IV PRN (15:00)
[2022-12-31] MEDS ORDERED: IPRATROPIUM BROMIDE (0.02%) 0.5MG/2.5ML NEB HHN PRN (18:00)
[2022-12-31] MEDS ORDERED: ALBUTEROL (0.083%) 2.5MG/3ML NEB HHN PRN (18:00)
[2022-12-31] MEDS: SODIUM CHLORIDE 0.45% 1,000 ML IV SCH (18:38)
[2022-12-31] MEDS: FAMOTIDINE 20MG TABLET PO SCH (22:48)
[2022-12-31] MEDS: ATORVASTATIN CALCIUM 40MG TABLET PO SCH (22:48)
[2022-12-31] MEDS: INSULIN GLARGINE 100 UNITS/ML SUBCUT SCH (22:51)
[2022-12-31] MEDS: SERTRALINE HCL 100MG TABLET PO SCH (23:42)
[2022-12-31] MEDS: HYDROCODONE/ACETAMINOPHEN 5/325MG TABLET PO PRN ×2 (23:43→23:49)
[2023-01-01] VITALS: BP 119/59
[2023-01-01 04:00] VITALS: BP 127/80
[2023-01-01] MEDS: SODIUM CHLORIDE 0.45% 1,000 ML IV SCH (04:00)
[2023-01-01 07:30] LABS: HEMATOCRIT. 35.4 % (42.0-52.0); HEMOGLOBIN. 11.3 g/dL (14.0-18.0); MEAN CORPUSCULAR HEMOGLOBIN 24.8 pg (28.0-32.0); MEAN CORPUSCULAR VOLUME 77.4 fL (80.0-94.0); MEAN PLATELET VOLUME 9.2 fl (7.4-10.4); PLATELET 184 x1000/uL (130-400); RED BLOOD CELL COUNT 4.57 mill/uL (4.7-6.1)
[2023-01-01 08:00] VITALS: BP 124/66
[2023-01-01 08:04] LABS: CHLORIDE 114 mEq/L (98-107)
[2023-01-01] MEDS ORDERED: FAMOTIDINE 20MG TABLET PO SCH (09:00)
[2023-01-01] MEDS: ASPIRIN 81MG EC TABLET PO SCH (10:36)
[2023-01-01] MEDS: TAMSULOSIN HCL 0.4MG SR CAPSULE PO SCH (10:37)
[2023-01-01] MEDS: FAMOTIDINE 20MG TABLET PO SCH ×2 (10:38→22:52)
[2023-01-01] MEDS: ENOXAPARIN 30MG/0.3ML SYR SUBCUT SCH (10:38)
[2023-01-01] MEDS: HYDROCODONE/ACETAMINOPHEN 5/325MG TABLET PO PRN ×2 (10:54→17:18)
[2023-01-01 11:38] LABS: FOLIC ACID (FOLATE) SERUM 9.8 ng/mL (>5.38)
[2023-01-01 12:00] VITALS: BP 104/71
[2023-01-01] MEDS: BLOOD SUGAR DIAGNOSTIC STRIP TEST SCH ×2 (12:20→21:00)
[2023-01-01] MEDS: INSULIN LISPRO 100 UNITS/ML SUBCUT SCH ×3 (12:20→21:00)
[2023-01-01 13:04] LABS: PLATELET ESTIMATE NORMAL
[2023-01-01 16:00] VITALS: BP 131/74
[2023-01-01 20:00] VITALS: BP 141/72
[2023-01-01] MEDS: SERTRALINE HCL 100MG TABLET PO SCH (22:51)
[2023-01-01] MEDS: ATORVASTATIN CALCIUM 40MG TABLET PO SCH (22:51)
[2023-01-01] MEDS: INSULIN GLARGINE 100 UNITS/ML SUBCUT SCH (23:03)
[2023-01-02] VITALS: BP 140/73
[2023-01-02 04:00] VITALS: BP 133/69
[2023-01-02] MEDS: BLOOD SUGAR DIAGNOSTIC STRIP TEST SCH ×3 (07:20→17:20)
[2023-01-02] MEDS: INSULIN LISPRO 100 UNITS/ML SUBCUT SCH ×3 (07:50→17:50)
[2023-01-02 08:00] VITALS: BP 126/70
[2023-01-02 09:46] LABS: BASOPHILS % 0.4 % (0.0-2.0); EOSINOPHILS % 1.4 % (0.0-5.0); HEMATOCRIT. 37.1 % (42.0-52.0); HEMOGLOBIN. 11.9 g/dL (14.0-18.0); LYMPHOCYTES % 28.1 % (20.0-50.0); MEAN CORPUSCULAR HEMOGLOBIN 24.7 pg (28.0-32.0); MEAN PLATELET VOLUME 8.8 fl (7.4-10.4); MONOCYTES % 11.5 % (2.0-8.0); NEUTROPHILS % 58.6 % (40.0-76.0); PLATELET 186 x1000/uL (130-400); RED BLOOD CELL COUNT 4.82 mill/uL (4.7-6.1)
[2023-01-02 09:55] LABS: CHLORIDE 114 mEq/L (98-107)
[2023-01-02 10:02] LABS: PHOSPHORUS 3.3 mg/dL (2.5-4.9)
[2023-01-02] MEDS: TAMSULOSIN HCL 0.4MG SR CAPSULE PO SCH (10:41)
[2023-01-02] MEDS: ASPIRIN 81MG EC TABLET PO SCH (10:41)
[2023-01-02] MEDS: FAMOTIDINE 20MG TABLET PO SCH (10:42)
[2023-01-02] MEDS: HYDROCODONE/ACETAMINOPHEN 5/325MG TABLET PO PRN (10:43)
[2023-01-02] MEDS: ENOXAPARIN 30MG/0.3ML SYR SUBCUT SCH (10:55)
[2023-01-02 12:00] VITALS: BP 129/69
[2023-01-02 16:00] VITALS: BP 120/68
[2023-01-03] MEDS ORDERED: ENOXAPARIN 40MG/0.4ML SYR SUBCUT SCH (09:00)
== END 2023-01-02 18:52 | disposition home or self-care (01) | DRG 190 ==
LOC: ER 12:00 → 6EST 20:12 → EDBEDREQ 20:39 → EDBEDREQTM 20:39
PROVIDERS: ADMIT Internal Medicine; ATTEND Internal Medicine
DX: I25.10 Atherosclerotic heart disease of native coronary artery without angina pectoris (principal); I21.A1 Myocardial infarction type 2; N17.0 Acute kidney failure with tubular necrosis; I13.0 Hypertensive heart and chronic kidney disease with heart failure and stage 1 through stage 4 chronic kidney disease, or unspecified chronic kidney disease; E11.22 Type 2 diabetes mellitus with diabetic chronic kidney disease; D50.9 Iron deficiency anemia, unspecified; E11.40 Type 2 diabetes mellitus with diabetic neuropathy, unspecified; K52.9 Noninfective gastroenteritis and colitis, unspecified; E87.5 Hyperkalemia; N18.32 Chronic kidney disease, stage 3b; F41.9 Anxiety disorder, unspecified; E78.00 Pure hypercholesterolemia, unspecified; J44.9 Chronic obstructive pulmonary disease, unspecified; K59.00 Constipation, unspecified; E78.5 Hyperlipidemia, unspecified; K76.0 Fatty (change of) liver, not elsewhere classified; N40.0 Benign prostatic hyperplasia without lower urinary tract symptoms; F10.10 Alcohol abuse, uncomplicated; F14.90 Cocaine use, unspecified, uncomplicated; F32.A Depression, unspecified; Z79.82 Long term (current) use of aspirin; Z79.899 Other long term (current) drug therapy; Z87.891 Personal history of nicotine dependence; Z95.1 Presence of aortocoronary bypass graft; Z82.49 Family history of ischemic heart disease and other diseases of the circulatory system
CPT/HCPCS: 36415; 74176; 76705; 76770; 80048; 80053; 80061; 80305; 81003; 82607; 82728; 82746; 82962; 83036; 83540; 83550; 83605; 83735; 83880; 84100; 84153; 84439; 84443; 84481; 84484; 85025; 85379; 90732; 93005; 93306; 99285; C1893; J1650; J1815; J1885; J2270; J2405; J3411; J3490; J7030; G0103

== ENCOUNTER 2023-01-12 04:16 | Inpatient (IN) | payer MEDICARE, OTHER ==
[2023-01-12] VITALS (10 sets, daily range): BP systolic 103–130; BP diastolic 61–73
[~2023-01-12] VITALS: Ht 175.3 cm; Wt 88.5 kg
[2023-01-12] MEDS ORDERED: MORPHINE SULFATE 4 MG/ML CPJ (NOT FOR IM USE) IV STA (05:09)
[2023-01-12 05:29] LABS: BASOPHILS % 0.6 % (0.0-2.0); EOSINOPHILS % 0.5 % (0.0-5.0); HEMATOCRIT. 37.6 % (42.0-52.0); HEMOGLOBIN. 12.1 g/dL (14.0-18.0); LYMPHOCYTES % 15.3 % (20.0-50.0); MEAN CORPUSCULAR VOLUME 77.8 fL (80.0-94.0); MEAN PLATELET VOLUME 8.9 fl (7.4-10.4); MONOCYTES % 11.3 % (2.0-8.0); NEUTROPHILS % 72.3 % (40.0-76.0); PLATELET 178 x1000/uL (130-400); RED BLOOD CELL COUNT 4.83 mill/uL (4.7-6.1)
[2023-01-12 05:36] LABS: CHLORIDE 112 mEq/L (98-107)
[2023-01-12] MEDS ORDERED: TRAMADOL 50MG TABLET PO NR (08:30)
[2023-01-12] MEDS ORDERED: METF-414 MT (10:28)
[2023-01-12] MEDS ORDERED: ACETAMINOPHEN 325MG TABLET PO PRN (10:45)
[2023-01-12] MEDS ORDERED: ONDANSETRON HCL 4MG/2ML INJ IV PRN (10:45)
[2023-01-12] MEDS ORDERED: NALOXONE HCL 0.4MG/ML VIAL IV PRN (11:15)
[2023-01-12] MEDS: MORPHINE SULFATE 2 MG/ML CPJ (NOT FOR IM USE) IV PRN ×2 (11:24→17:58)
[2023-01-12] MEDS: ASPIRIN 81MG TABLET PO SCH (11:31)
[2023-01-12 12:31] LABS: *AMPHETAMINES SCREEN URINE NEGATIVE (NEGATIVE); *BARBITURATES SCREEN URINE NEGATIVE (NEGATIVE); *BENZODIAZEPINES SCREEN URINE NEGATIVE (NEGATIVE); *COCAINE SCREEN URINE PRESUMTIVE POSITIVE (NEGATIVE); CANNABINOID URINE SCREEN NEGATIVE (NEGATIVE); METHADONE URINE SCREEN NEGATIVE (NEGATIVE); OPIATES URINE SCREEN PRESUMTIVE POSITIVE (NEGATIVE); PHENCYCLIDINE URINE SCREEN NEGATIVE (NEGATIVE)
[2023-01-12] MEDS: FUROSEMIDE 100MG/10ML VIAL IVP SCH (17:22)
[2023-01-12] MEDS ORDERED: FURO-151 MT (19:43)
[2023-01-13] VITALS: BP 124/71
[2023-01-13 02:00] VITALS: BP 106/58
[2023-01-13 04:00] VITALS: BP 100/41
[2023-01-13 06:00] VITALS: BP 111/64
[2023-01-13] MEDS: FUROSEMIDE 100MG/10ML VIAL IVP SCH (06:40)
[2023-01-13 08:00] VITALS: BP 116/78
[2023-01-13] MEDS ORDERED: AMLODIPINE 5MG TABLET PO SCH (09:00)
[2023-01-13] MEDS: ASPIRIN 81MG TABLET PO SCH (10:05)
[2023-01-13 11:44] VITALS: BP 108/73
== END 2023-01-13 12:20 | disposition home or self-care (01) | DRG 816 ==
LOC: ER 04:16 → 5EST 06:38 → EDBEDREQ 06:41 → EDBEDREQTM 06:41 → ENRESERV 08:31
PROVIDERS: ADMIT Internal Medicine; ATTEND Internal Medicine
DX: T40.5X1A Poisoning by cocaine, accidental (unintentional), initial encounter (principal); I50.33 Acute on chronic diastolic (congestive) heart failure; I47.20 Ventricular tachycardia, unspecified; I25.110 Atherosclerotic heart disease of native coronary artery with unstable angina pectoris; E11.51 Type 2 diabetes mellitus with diabetic peripheral angiopathy without gangrene; D64.9 Anemia, unspecified; D75.839 Thrombocytosis, unspecified; E78.00 Pure hypercholesterolemia, unspecified; I11.0 Hypertensive heart disease with heart failure; Z95.1 Presence of aortocoronary bypass graft; F14.10 Cocaine abuse, uncomplicated; F32.A Depression, unspecified; I16.0 Hypertensive urgency; F17.210 Nicotine dependence, cigarettes, uncomplicated; E78.5 Hyperlipidemia, unspecified; Z60.2 Problems related to living alone; J44.9 Chronic obstructive pulmonary disease, unspecified; Z82.49 Family history of ischemic heart disease and other diseases of the circulatory system; Z79.84 Long term (current) use of oral hypoglycemic drugs; Z79.82 Long term (current) use of aspirin; Z79.899 Other long term (current) drug therapy; I25.2 Old myocardial infarction; Z71.6 Tobacco abuse counseling; Z71.51 Drug abuse counseling and surveillance of drug abuser
CPT/HCPCS: 36415; 71045; 80053; 80305; 83880; 84484; 85025; 93005; 99285; J1940; J2270